=== PATIENT | male | born 1990 | race Caucasian/White ===

== ENCOUNTER 2019-10-19 12:28 | Emergency (ER) | payer SELFPAY ==
[2019-10-19 12:29] VITALS: BP 136/80; PULSE 77; RESP 16; TEMP 36.7; O2SAT 99; BMI 19.5
--- NOTE | 2019-10-19 12:44 | ED.DCSUM_ITS ---
- ER Visit Summary Date of Service: 10/19/19 Chief Complaint: [Dental pain] History of Present Illness: The patient is a 29 M [presents to the emergency department complaint abdominal pain that started 2 days ago. Patient states that he went to a [place] camp and initially the pain was mild but progressively worsened. He denies any fever. He denies any trauma. Patient states that he thinks a piece of bone came loose from 1 of his teeth. Patient states he has poor dentition and does not have a dentist. He has any medical problems.] Physical Examination: [HEENT-PERRLA, EOMI. Cranial nerves II through XII grossly intact. TMs clear. Mucous membranes moist. No adenopathy. -patient has tenderness palpation over the right upper molar tooth #2. Patient also has tenderness palpation over the right lower premolar that is broken and carried. No facial cellulitis or erythema noted. No discrete dental abscesses noted. Cardiovascular-regular rate and rhythm without murmur or ectopy Lungs-clear to auscultation, chest wall stable without crepitus or subcu emphysema Abdomen-normoactive bowel sounds, soft, nontender, no rebound or rigidity, no peritoneal signs. Extremities-intact ?4, normal range of motion, normal pulses, atraumatic] Test Results: [None indicated] Emergency Department Course and Treatment: [Patient was given 1 Whitt and clindamycin] Treatment Plan: [Patient will be given a prescription for clindamycin and [place]. Disposition: [Discharged home in stable condition] Impression: [Dental pain secondary to dental caries] This note was generated with [employer] dictation software. It may contain incorrect words, spelling, and punctuation that were not noted in review of the chart prior to signing ED Disposition - Plan for ED Patient: Referrals: Care Physician,No Primary [Primary Care Provider] -
--- NOTE | 2019-10-19 12:47 | DCINST.ED_ITS ---
ED Disposition - Plan for ED Patient: Instructions: Dental Pain Prescriptions: Clindamycin HCl [Cleocin] 300 mg PO Q6H #40 cap Prescription Printed Hydrocodone Bitart/Apap 5-325 [[place] 5MG-325MG] 1 tab PO Q4H PRN PRN 2 Days #14 tab PRN Reason: Pain Prescription Printed Referrals: Care Physician,No Primary [Primary Care Provider] - Additional Instructions: see a dentist
[2019-10-19] MEDS: HYDROcodone Bitartrate/Apap 5/325 Tablet PO (12:50)
[2019-10-19] MEDS: Clindamycin HCl 150 MG Capsule 300 MG PO (12:51)
[2019-10-19 13:02] VITALS: PULSE 87; RESP 14; O2SAT 98
== END 2019-10-19 13:03 | disposition home or self-care (01) ==
LOC: ED 12:49
PROVIDERS: Emergency Provider Emergency Medicine
DX: K02.9 Dental caries, unspecified (principal); K08.89 Other specified disorders of teeth and supporting structures; S02.5XXA Fracture of tooth (traumatic), initial encounter for closed fracture; X58.XXXA Exposure to other specified factors, initial encounter; Y93.9 Activity, unspecified; Y92.9 Unspecified place or not applicable; Z72.0 Tobacco use
CPT/HCPCS: 99283

== ENCOUNTER 2020-04-27 16:45 | Emergency (ER) | payer MEDICAID, SELFPAY ==
[2020-04-27 16:45] VITALS: BP 127/86; PULSE 67; RESP 18; TEMP 36.5; O2SAT 97; BMI 19.1
--- NOTE | 2020-04-27 17:03 | ED.VIS.GEN ---
History of Present Illness Chief Complaint: Rash Informant: Patient Onset: Weeks Current Severity: Mild Maximum Severity: Mild Narrative: Poison marii involving the buttocks and groin, indicates last week he was camping he was laying in poison marii inadvertently he has had persistent typical rash presents for evaluation no other complaints no other trauma bowel bladder habits unremarkable Past Medical History - Allergies and Home Meds Allergies/Adverse Reactions: Allergies amoxicillin Allergy (Verified 04/27/20 16:48) Anaphylaxis Penicillins [PCN] Allergy (Verified 04/27/20 16:48) Anaphylaxis Primary Care Physician: Care Physician,No Primary [Primary Care Provider] - Past Medical History: None Smoking Status: Current every day smoker Review of Systems General: Denies: Chills, Fever, Sweats Eyes: Denies: Visual changes - bilaterally, Diplopia ENT: Denies: Rhinorrhea, Sore throat Cardiovascular: Denies: Chest pain, Palpitations Respiratory: Denies: Dyspnea, Cough, Dyspnea on exertion Gastrointestinal: Denies: Abdominal pain, Nausea, Vomiting, Diarrhea, Melena, Hematochezia Genitourinary: Denies: Dysuria, Hematuria, Frequency Musculoskeletal: Denies: Back pain, Extremity Pain Skin: Reports: Rash. Denies: Wounds Neurological: Denies: Headache, Weakness, Numbness Physical Exam Vital Signs/Narrative: Vital Signs Temp Pulse Resp BP Pulse Ox 04/27/20 16:45 97.7 F L 67 18 127/86 H 97 General: Well nourished, Well developed, No Acute Distress Head: Normocephalic, Atraumatic Eyes: Perrl, EOMI ENT: Moist mucous membranes, No rhinorrhea Neck: Supple, Nontender Cardiovascular: Regular rate, Regular rhythm, No murmurs Respiratory: No distress, CTA bilaterally, Chest nontender Abdomen: Soft, Nontender, Nondistended, Normal bowel sounds Back: Nontender, Normal Inspection Extremities: Nontender, No edema Skin: - - Has small papules involving the buttocks the anterior groin consistent with poison marii no petechia purpura blistering no penile lesions testicles unremarkable exam otherwise unremarkable with very mild bilateral adenopathy skin is intact he assures me this is related to him laying in poison marii he recognizes immediately got up Neurological: Alert, Oriented x3, Cranial nerves II-XII grossly intact, Normal Strength, Normal Sensation Psychological: Normal affect, Normal Mood Diagnostic/Tx/Re-eval - Medical Decision Making He will be treated with Kenalog hydrocortisone ointment to the areas that are most bothersome to him [place] bath and follow-up with his outpatient providers to be placed off work Home stable Final impression Poison marii type rash to groin area ED Disposition - Plan for ED Patient: Instructions: ED Dermatitis Poison Amrii Prescriptions: Hydrocortisone 1% Crm [Hytone] 1 applic TOPICAL BID 14 Days #1 tube Prescription Printed Referrals: Care Physician,No Primary [Primary Care Provider] - Carol Vicente [NON-STAFF] -
[2020-04-27] MEDS: Triamcinolone Acetonide 40 MG/ML Vial IM (17:34)
[2020-04-27 17:42] VITALS: RESP 18
== END 2020-04-27 17:42 | disposition home or self-care (01) ==
PROVIDERS: Emergency Provider Emergency Medicine
DX: L23.7 Allergic contact dermatitis due to plants, except food (principal); F17.200 Nicotine dependence, unspecified, uncomplicated
CPT/HCPCS: 96372; 99282

== ENCOUNTER 2020-07-18 11:51 | Emergency (ER) | payer MEDICAID, SELFPAY ==
[2020-07-18 11:52] VITALS: BP 150/76; PULSE 60; RESP 16; TEMP 36.1; O2SAT 99
--- NOTE | 2020-07-18 12:01 | CT_ITS ---
STUDY: CT ABDOMEN AND PELVIS WITHOUT CONTRAST REASON FOR EXAM: Male, 30 years old. Abdomen pain, nausea/vomiting, Hx-KS RADIATION DOSAGE (If Supplied By Facility): CTDIvol = ( 6.04 ) mGy, DLP = ( 276.33 ) mGycm TECHNIQUE: Transaxial images were obtained from the dome of the diaphragm to the symphysis pubis without oral contrast, and without intravenous contrast. Sagittal and coronal images were reconstructed. Individualized dose optimization techniques were used for this CT. COMPARISON: None. FINDINGS: The visualized lung bases are unremarkable. The visualized portions of the heart are within normal limits. Normal liver. Normal gallbladder and extrahepatic biliary system. Normal spleen. Normal pancreas. Normal bilateral adrenal glands. Normal right kidney. Punctate calcification in the upper pole calyx of the left kidney. Normal visualized stomach. Normal small intestine. Normal colon. The appendix is visualized and appears normal. Normal abdominal aorta. Normal inferior vena cava. Normal retroperitoneum. Normal urinary bladder. Normal abdominal wall. Normal osseous structures. CT/Abdomen/Pelvis without Cont IMPRESSION: Punctate calcification in the upper pole calyx of the left kidney. Electronically Signed: Vishal Amador, at 13:02 EDT , Service support ,
[2020-07-18] MEDS: 0.9% Normal Saline 1,000 ML 125 ML IV (12:09)
[2020-07-18 12:10] LABS: Bacteria 0 SEEN /hpf (None Seen); Mucous, Urine 0 SEEN /hpf (<or=2+); Red Blood Cells-Urine 0 SEEN /hpf (0-5)
[2020-07-18] MEDS: Ketorolac 30 MG/ML Syringe IV (12:10)
[2020-07-18] MEDS: Ondansetron 4 MG/2 ML Vial IV (12:10)
[2020-07-18] MEDS: Morphine 4 MG/ML Syringe IV (12:10)
[2020-07-18 12:15] LABS: Absolute Lymphocyte Count 2.81 X10^3/uL (0.83-4.51); Absolute Neutrophil Count 12.9 X10^3/uL (2.0-7.7); Basophil# 0.04 X10^3/uL; Basophil% 0.2 % (0-1); Eosinophil# 0.06 X10^3/uL; Eosinophils% 0.4 % (0-5); Hematocrit 45.1 % (40-54); Hemoglobin 15.4 g/dL (13.0-16.5); Lymphocyte # 2.81 X10^3/ul (4.0); Lymphocyte % 16.5 % (19-41); Mean Corp Hgb Conc 34.1 g/dL (32-36); Mean Corpuscular Hgb 30.7 pg (27.0-32.0); Mean Corpuscular Volume 89.8 fL (80-94); Mean Platelet Vol. 11.2 fl (6.2-12.0); Monocyte# 1.08 X10^3/uL; Monocyte% 6.4 % (0-10); NRBC Flagged by Analyzer 0 % (0-5); Neutrophil # 12.89 X10^3/uL (2.7-7.7); Neutrophil % 75.9 % (47-70); Platelet Count 247 K/mm3 (150-450); RBC Distribution Width CV 11.9 % (11.6-14.6); RBC Distribution Width SD 38.7 fl (35.1-43.9); Red Blood Count 5.02 M/mm3 (4.6-6.2)
[2020-07-18 12:27] LABS: Color, Urine Yellow (Yellow); Glucose, Dipstick Normal (Normal); Ketone-Dipstick Negative (Negative); Leukocyte Esterase-Dipstick 25 /ul (Negative); Nitrite-Dipstick Negative (Negative); Occult Blood-Urine Negative /ul (Negative); Protein-Dipstick Negative (Negative); Specific Gravity, Urine 1.015 (1.002-1.030); Urine Bilirubin Dipstick Negative (Negative); Urine Clarity Sl. Cloudy (Clear); Urine Urobilinogen Normal (Normal)
[2020-07-18 12:28] LABS: Anion Gap 4 (5-15); BUN 11 mg/dL (7-18); Calcium,Total 9.6 mg/dL (8.5-10.1); Chloride 104 mmol/L (98-107); Creatinine, Serum 0.85 mg/dL (0.70-1.30); EST Glomerular Filtration Rate 114 mL/min (>60); Est Glom Filt Rate - Afr Amer 137 mL/min (>60); Estimated Creatinine Clearance 115.18 ml/min; Glucose 93 mg/dL (74-106); Sodium Level 139 mmol/L (136-145)
[2020-07-18 12:44] LABS: Squamous Epithelial Cells - UA 0-5 SEEN /hpf (0-5); White Blood Cells 0-5 SEEN /hpf (0-5)
--- NOTE | 2020-07-18 14:16 | ED.VISSUMM ---
- ER Visit Summary Date of Service: 07/18/20 Chief Complaint: [Left flank pain and nausea and vomiting] History of Present Illness: The patient is a 30 M [presents to the emergency department with discomfort since around 10 PM. Patient states that he became very nauseated and started vomiting followed by pain in his left side of abdomen and into his back. Patient denies any diarrhea. Patient denies any blood in his stool or black tarry stool. He has had history of kidney stones and felt like it might be another kidney stone. He has had no fever. No recent illness. Patient does not have a primary care physician currently. He denies any trauma to his back. Pain is worse with movement. Denies any pain rating down his legs.] Physical Examination: [HEENT-PERRLA, EOMI. Cranial nerves II through XII grossly intact. TMs clear. Mucous membranes moist. No adenopathy. Cardiovascular-regular rate and rhythm without murmur or ectopy Lungs-clear to auscultation, chest wall stable without crepitus or subcu emphysema Abdomen-normoactive bowel sounds, soft. Patient has tenderness palpation over left lower abdomen that seems to reproduce his pain. Patient has CVA tenderness on the left. Back exam-patient has tenderness to palpation over the left lower ribs and lumbar paraspinal musculature that seems to reproduce his pain. Negative straight leg raises. Deep tendon reflexes are plus 2 out of 4 bilaterally at the patella and Achilles. Normal L5 extension bilaterally. Extremities-intact ?4, normal range of motion, normal pulses, atraumatic] Test Results: [CBC with differential obtained showed a's elevated white blood cell count of 17,000. Chemistries unremarkable. Urinalysis was normal. CT flank showed a punctate calcification in the upper pole of the left kidney otherwise nothing acute.] Emergency Department Course and Treatment: [Patient was medicated with Zofran 4 mg IV as well as Toradol 30 mg IV. Patient given morphine 4 mg IV.] Treatment Plan: [At this point etiology of patient's pain unclear although I suspect it may be musculoskeletal. I am able to reproduce his pain with palpation and its positional. Will be given a prescription for Flexeril and [place] for pain. Patient advised to follow-up with primary care physician relationship manager for no doc within next 3 to 5 days. Patient advised to return if worsening pain, fever, vomiting, or condition should worsen anyway.] Disposition: [Discharged home in stable condition] Impression: [Flank pain-etiology uncertain] This note was generated with [employer] dictation software. It may contain incorrect words, spelling, and punctuation that were not noted in review of the chart prior to signing ED Disposition - Plan for ED Patient: Referrals: Care Physician,No Primary [Primary Care Provider] -
--- NOTE | 2020-07-18 14:20 | ED.DEP ---
ED Disposition - Plan for ED Patient: Instructions: ED Unknown Causes of Abdominal Pain Male, ED Flank Pain Uncertain Cause Prescriptions: cycloBENZAPRine HCl [Flexeril] 10 mg PO TID PRN #20 tab PRN Reason: Muscle Spasm Prescription Printed Hydrocodone Bitart/Apap 5-325 [[place] 5MG-325MG] 1 tab PO Q4H PRN PRN 2 Days #10 tab PRN Reason: Pain Prescription Printed Referrals: Care Physician,No Primary [Primary Care Provider] - Sarwat Adams III, MD [STAFF PHYSICIAN] - 3-5 Days
--- NOTE | 2020-07-18 14:23 | DCINST.ED_ITS ---
ED Disposition - Plan for ED Patient: Instructions: ED Flank Pain Uncertain Cause, ED Unknown Causes of Abdominal Pain Male Prescriptions: cycloBENZAPRine HCl [Flexeril] 10 mg PO TID PRN #20 tab PRN Reason: Muscle Spasm Prescription Printed Hydrocodone Bitart/Apap 5-325 [[place] 5MG-325MG] 1 tab PO Q4H PRN PRN 2 Days #10 tab PRN Reason: Pain Prescription Printed Ondansetron [Zofran Odt] 4 mg PO Q8H PRN PRN #10 tab PRN Reason: Nausea Prescription Printed Referrals: Sarwat Adams III, MD [STAFF PHYSICIAN] - 3-5 Days Care Physician,No Primary [Primary Care Provider] -
[2020-07-18 14:35] VITALS: BP 125/85; PULSE 71; RESP 18; O2SAT 98
== END 2020-07-18 14:35 | disposition home or self-care (01) ==
PROVIDERS: Emergency Provider Emergency Medicine
DX: R10.9 Unspecified abdominal pain (principal); R11.2 Nausea with vomiting, unspecified; Z87.442 Personal history of urinary calculi; Z72.0 Tobacco use
CPT/HCPCS: 74176; 80048; 81001; 85025; 96361; 96374; 96375; 99283; J7030; A4216; J2405

== ENCOUNTER 2021-01-03 21:35 | Emergency (ER) | payer MEDICAID, SELFPAY ==
[2021-01-03 21:36] VITALS: BP 141/100; PULSE 84; RESP 16; TEMP 36.4; O2SAT 100; BMI 21.0
--- NOTE | 2021-01-03 23:07 | ED.DCSUM_ITS ---
History of Present Illness Chief Complaint: Dental Informant: Patient Narrative: Patient is a 30-year-old male with history of multiple cavities presenting with worsening dental pain. He states he is on the right side of his mouth both upper and bottom molars but more pronounced on the bottom. He states is been worsening over the past 3 weeks. Patient had an old prescription for clindamycin with approximately 12 pills left that he has been spacing out over this timeframe. He is alternating Tylenol and ibuprofen with no relief of the symptoms. He is concerned because the pain is significantly worsening and is not getting better. He denies any swelling of his face. The pain is now shooting into his ear. He denies any hearing changes. He denies any fever or chills. He denies any difficulty swallowing or swelling of his face. He does have an appointment to see his dentist on the , in 4 days. Past Medical History - Allergies and Home Meds Allergies/Adverse Reactions: Allergies amoxicillin Allergy (Verified 01/03/21 21:37) Anaphylaxis Penicillins [PCN] Allergy (Verified 01/03/21 21:37) Anaphylaxis Primary Care Physician: Care Physician,No Primary [Primary Care Provider] - Past Medical History: None Surgical History: noncontributory Lives: Spouse/ Significant Other Smoking Status: Current every day smoker Review of Systems General: Denies: Chills, Fever, Sweats Eyes: Denies: Visual changes - bilaterally, Diplopia ENT: Reports: Right ear pain, - - Right-sided dental pain. Denies: Rhinorrhea, Sore throat Cardiovascular: Denies: Chest pain, Palpitations Respiratory: Denies: Dyspnea, Cough Gastrointestinal: Denies: Abdominal pain, Nausea, Vomiting Skin: Denies: Rash, Wounds Neurological: Reports: Headache. Denies: Weakness Physical Exam Vital Signs/Narrative: Vital Signs Temp Pulse Resp BP Pulse Ox 01/03/21 21:36 97.5 F L 84 16 141/100 H 100 Inital Vital Signs reviewed: Yes General: Well nourished, Well developed Head: Normocephalic, Atraumatic ENT: Moist mucous membranes, No rhinorrhea, TM's clear Mouth/Throat: Normal inspection lips/gums, Normal oral mucosa, Dental abscess - Posterior to right bottom third molar, Dentral fracture, Gingivitis, Tenderness on tooth percussion - Patient's remaining right upper molar and right lower molars, Widespread dental decay. Negative for: Dental trauma, Trismus Neck: Supple, No lymphadenopathy, Nontender Cardiovascular: Regular rate, Regular rhythm Respiratory: No distress Back: Normal Inspection Extremities: Nontender, No edema Skin: Normal color, No rash Neurological: Alert, Oriented x3, Cranial nerves II-XII grossly intact, Normal Strength, Normal Sensation Psychological: Normal affect Diagnostic/Tx/Re-eval - Medical Decision Making Regional and Local Dental Anesthesia: Marc[place], Local Supraperiosteal Dental Injection, Right Inferior Alveolar Nerve Block, - - Right posterior superior alveolar block Evaluated for worsening dental pain. He does not have any airway compromise. He has normal neurologic exam. He does have widespread dental decay with multiple cracked and missing teeth. Dental block is performed to his right molars. Patient does have improvement of symptoms with this. He has been taking a very subtherapeutic dose of clindamycin that he had leftover. Patient is placed on the appropriate dose of clindamycin and given a short course of [place] for pain control. He has a dental appointment in 4 days. Patient is counseled on smoking cessation as this is worsening his dentalgia. Patient is have a small area of abscess behind his right molar and the area is opened with an 18-gauge needle. Patient tolerated procedure well. Patient is counseled on signs and symptoms requiring return to the emergency room. Patient verbalizes agreement and understand this plan. Patient discharged home in stable and improved condition. ED Disposition - Plan for ED Patient: Disposition: Home or Assisted Living Diagnosis: Dentalgia, Dental abscess Instructions: Dental Abscess, ED Dental Pain Prescriptions: Clindamycin [Cleocin] 450 mg PO TID 10 Days #90 cap Prescription Printed Hydrocodone Bitart/Apap 5-325 [[place] 5MG-325MG] 1 tab PO Q6H PRN PRN 3 Days #10 tab PRN Reason: Pain Prescription Printed Additional Instructions: Please continue to alternate ibuprofen with the pain medicine prescribed. Follow-up with your dentist as scheduled on Wednesday.
[2021-01-03] MEDS: Clindamycin HCl 150 MG Capsule 450 MG PO (23:32)
[2021-01-03] MEDS: Bupiv/Epi 0.5% Mpf 30 ML Vial SC (23:33)
== END 2021-01-04 00:07 | disposition home or self-care (01) ==
PROVIDERS: Emergency Provider Emergency Medicine
DX: K04.7 Periapical abscess without sinus (principal); K02.9 Dental caries, unspecified; F17.200 Nicotine dependence, unspecified, uncomplicated
CPT/HCPCS: 64400; 64999; 99283

== ENCOUNTER 2021-04-06 22:11 | Emergency (ER) | payer MEDICAID, SELFPAY ==
[2021-04-06 22:12] VITALS: BP 135/98; PULSE 73; RESP 16; TEMP 37
--- NOTE | 2021-04-06 22:27 | EDS_ITS ---
HPI History of Present Illness Chief Complaint: Dental Detail of Chief Complaint: With left lower molar pain x4 days Informant: patient Onset/Context/Timing Current Severity: Severe Maximum Severity: Severe Narrative Narrative: Patient presents with dental pain x4 days. He denies any trauma. Patient states that he has had some poor dentition and [facility]. He denies any fevers. Patient states that he has a broken and carried left lower molar that is painful. [id number] remedies are not helpful. PFSH PFSH Home Medications clindamycin HCl 300 mg PO 4X/DAY #80 capsule 04/06/21 [Rx Last Taken Unknown] hydrocodone-acetaminophen 1 tab PO Q4H PRN PRN 2 Days #10 tablet 04/06/21 [Rx Last Taken Unknown] Allergy/AdvReac Type Severity Reaction Status Date / Time amoxicillin Allergy Anaphylaxis Verified 01/03/21 21:37 Penicillins [PCN] Allergy Anaphylaxis Verified 01/03/21 21:37 Social History Smoking Status: Current every day smoker ROS ROS ED Constitutional Constitutional ED: Reports systems reviewed and no addt'l complaints, except as documented; Denies body ache(s), change in weight or chills Eyes Eyes: Denies acute decrease in peripheral vision, change in vision, double vision or loss of vision ENT ENT ED: Reports none and other Details: Left lower molar dental pain ; Denies ear pain, lip swelling, loss taste/smell, neck pain, otalgia or sore throat Cardiovascular Cardiovascular: Reports none; Denies abdominal pain, chest pain with activity, leg edema, lightheadedness, palpitations, rapid heart rate or syncope Respiratory/Chest Respiratory/Chest: Reports none; Denies change in mental status, dry cough, dyspnea, hemoptysis, shortness of breath at rest or shortness of breath with exertion Gastrointestinal Gastrointestinal: Reports none; Denies abdominal pain, change in stool character, diarrhea, hematemesis, hematochezia, melena, rectal bleeding or vomiting Genitourinary Genitourinary ED: Reports none; Denies abdominal discomfort, anuria, dysuria, genital pain or polyuria Musculoskeletal Musculoskeletal: Reports none; Denies arthralgias, back pain, difficulty walking, extremity pain, muscle weakness or myalgias Integumentary Reports none; Denies abscess or rash Neurologic Neurologic: Reports none; Denies abnormal gait, confusion, focal weakness, frequent falls, headache(s), loss of vision, numbness, paresthesias, radicular pain, vertigo or weakness Psychiatric Psychiatric: Reports systems reviewed and no addt'l complaints, except as docum ented and none; Denies behavioral changes, confusion, difficulty concentrating, hallucinations, suicidal ideation, tactile hallucinations or visual hallucinations Endocrine Endocrinology: Denies none, cold intolerance, excessive sweating, fatigue or heat intolerance Hematologic/Lymphatic Hematologic/Lymphatic: Reports none; Denies anemia, easy bleeding or easy bruising Allergic/Immunologic Allergic/Immunologic ED: Denies as per HPI, none, lip swelling, mouth swelling, throat swelling, tongue swelling or hives EXAM Physical Exam Const Vital Signs: 04/06/21 22:12 Temperature 98.6 F Temperature Source Temporal Pulse Rate 73 Respiratory Rate 16 Blood Pressure 135/98 H Blood Pressure Mean 110 Positive well nourished and well developed General Appearance ED: well developed and NAD HEENT Reports TM's clear and moist mucous membranes HEENT Narrative: Dentition-patient has tenderness palpation over the left lower molar tooth #17. No gingival erythema or abscess noted. No facial cellulitis. normocephalic and atraumatic; Negative for trauma or tenderness Tympanic Membrane ED: Yes TM's clear Eyes PERRL and EOMs intact bilaterally General Eye ED: Negative for pale conjunctiva or scleral icterus Neck no lymphadenopathy, supple and no JVD General: Negative for tenderness Chest Wall inspection of chest normal and palpation of chest normal Chest: Negative for tenderness Resp normal respiratory effort and clear to auscultation bilaterally Effort and Inspection: Negative for respiratory distress or pain with movement Auscultation: Negative for rhonchi, wheezes or diminished lung sounds Cardio regular rate, regular rhythm, S1 normal heart sound, S2 normal heart sound and no murmurs Peripheral Pulses: pulses 2+ throughout GI normal to inspection, nondistended, normoactive bowel sounds, soft to palpation, non-tender, non-distended and no masses Back/Spine no CVA tenderness and no thoracic nor lumbar tenderness Extremity normal to inspection General Extremety ED: Negative for edema General Extremity: Negative for edema Neuro oriented x3, CN's II-XII intact bilaterally, no sensory deficits noted and gait normal Sensorium / Orientation: awake, alert, oriented to person, oriented to place and oriented to time Motor Exam: strength 5/5 throughout and strength abnormal Psych mental status grossly normal Skin no rashes or lesions noted and no wounds MDM MDM MDM Narrative Medical decision making narrative: Patient will be given a prescription for clindamycin and [place] for pain. He is referred back to his dentist for follow- up. Discharge Plan Triage Chief Complaint: Dental ED Provider: Ayse Ochoa Dx/Rx/DC Orders Clinical Impression: Pain due to dental caries Instructions: ED Dental Pain Prescriptions: New hydrocodone-acetaminophen [hydrocodone-acetaminophen] 1 TABLET tablet 1 tab PO Q4H PRN PRN (Reason: Pain) 2 Days Qty: 10 RF: 0 clindamycin HCl 150 MG capsule 300 mg PO 4X/DAY Qty: 80 RF: 0 Primary Care Provider: Care Physician,No Primary Referrals: Care Physician,No Primary [Primary Care Provider] - Activity Restrictions/Additional Instructions: See your dentist in the next 3 to 5 days. Disposition Disposition: Home, self care
[2021-04-06] MEDS: Clindamycin HCl 150 MG Capsule 300 MG PO (22:46)
== END 2021-04-06 22:47 | disposition home or self-care (01) ==
LOC: ED 22:43
PROVIDERS: Emergency Provider Emergency Medicine
DX: K02.9 Dental caries, unspecified (principal); F17.200 Nicotine dependence, unspecified, uncomplicated
CPT/HCPCS: 99283

== ENCOUNTER 2021-04-09 17:43 | Emergency (ER) | payer MEDICAID, SELFPAY ==
[2021-04-09 17:45] VITALS: BP 150/74; PULSE 72; RESP 18; TEMP 36; O2SAT 100; BMI 44.2
--- NOTE | 2021-04-09 18:08 | ED.VIS.DENTA ---
HPI History of Present Illness Chief Complaint: Dental Informant: patient Onset/Context/Timing Onset: Today Context: Gradual Onset Timing: Continuous Quality: Throbbing Location: Left lower molars Current Severity: Severe Maximum Severity: Severe Worsened by: Nothing Relieved by: - (Rinsing with cold water) Associated Symptoms Assocated Symptom - Dental: hot sensitivity; Negative for fever, jaw swelling, face swelling or cold sensitivity Narrative Narrative: Patient presents with left lower dental pain that became worse today. Patient states he was seen here earlier this week and was given prescriptions for clindamycin and Saint Gabriel. Patient states he is out of his Saint Gabriel. Patient states that he felt like while he was sleeping last night he was grinding his teeth. Patient thinks he may have broken a piece off of his tooth. Patient states it feels as though there are exposed nerves. Patient states he tried to make a dentist appointment at the [facility] but he states that the dentist there does not pull wisdom teeth. PFSH PFSH Home Medications clindamycin HCl 300 mg PO 4X/DAY #80 capsule 04/06/21 [Rx Last Taken Unknown] hydrocodone-acetaminophen 1 tab PO Q4H PRN PRN 2 Days #10 tablet 04/06/21 [Rx Last Taken Unknown] hydrocodone-acetaminophen 1 tab PO Q6H PRN PRN 3 Days #10 tablet 04/09/21 [Rx Last Taken Unknown] Allergy/AdvReac Type Severity Reaction Status Date / Time amoxicillin Allergy Anaphylaxis Verified 01/03/21 21:37 Penicillins [PCN] Allergy Anaphylaxis Verified 01/03/21 21:37 Social History Smoking Status: Current every day smoker tobacco type: cigarettes ROS ROS ED Constitutional Constitutional ED: Denies chills or fever(s) Eyes Eyes: Denies blurry vision or change in vision ENT ENT ED: Denies rhinorrhea or sore throat Cardiovascular Cardiovascular: Denies chest pain or palpitations Respiratory/Chest Respiratory/Chest: Denies cough or dyspnea Gastrointestinal Gastrointestinal: Denies nausea or vomiting Genitourinary Genitourinary ED: Denies dysuria or hematuria Musculoskeletal Musculoskeletal: Denies back pain or neck pain Integumentary Denies abscess or rash Neurologic Neurologic: Denies headache(s) or weakness Allergic/Immunologic Allergic/Immunologic ED: Denies mouth swelling or urticaria EXAM Physical Exam Const Vital Signs: 05/26/21 17:45 Temperature 96.8 F L Temperature Source Temporal Pulse Rate 72 Respiratory Rate 18 Blood Pressure 150/74 H Blood Pressure Mean 99 Pulse Ox 100 Oxygen Delivery Method Room Air Positive well nourished and well developed General Appearance ED: well developed HEENT Teeth and Gingiva: abnormal tooth and associated gingiva Positive for tenderness (#17), caries and poor dentition Throat: posterior oropharynx normal Neck supple and no JVD General: Negative for anterior neck swelling or submandibular swelling Neuro oriented x3, CN's II-XII intact bilaterally, moves all extremities, no focal motor deficits and no sensory deficits noted Sensorium / Orientation: alert Psych Mood & Affect: anxious MDM MDM MDM Narrative Medical decision making narrative: Patient was given a dose of Saint Gabriel here. Patient was given a prescription for a short course of Saint Gabriel. Patient was instructed to continue his clindamycin as previously prescribed. Patient was advised that his wisdom teeth may not need to be removed. Patient was advised that it may just need a filling. Patient was instructed to follow-up with his dentist. Patient understood and was agreeable with the plan. All questions were answered. Discharge Plan Triage Chief Complaint: Dental ED Provider: Orlando Lopez Dx/Rx/DC Orders Clinical Impression: Pain due to dental caries Instructions: ED Dental Pain, ED Dental Cavity Prescriptions: New hydrocodone-acetaminophen [hydrocodone-acetaminophen] 1 TABLET tablet 1 tab PO Q6H PRN PRN (Reason: Pain) 3 Days Qty: 10 RF: 0 No Action hydrocodone-acetaminophen [hydrocodone-acetaminophen] 1 TABLET tablet 1 tab PO Q4H PRN PRN (Reason: Pain) 2 Days Qty: 10 RF: 0 clindamycin HCl 150 MG capsule 300 mg PO 4X/DAY Qty: 80 RF: 0 Primary Care Provider: Care Physician,No Primary Referrals: Care Physician,No Primary [Primary Care Provider] - Dentist,Your [STAFF PHYSICIAN] - 1-2 Days if not improving Activity Restrictions/Additional Instructions: You have a large cavity on your left lower second and third molars. These may not need to be extracted or pulled. A filling may relieve your pain. Make sure that you follow-up with your dentist to have them examine this and provide you with further treatment options. Call tomorrow morning to schedule an appointment. Disposition Disposition: Home, self care
[2021-04-09] MEDS: HYDROcodone Bitartrate/Apap 5/325 Tablet PO (18:26)
== END 2021-04-09 18:28 | disposition home or self-care (01) ==
LOC: ED 18:15
PROVIDERS: Emergency Provider Emergency Medicine
DX: K02.9 Dental caries, unspecified (principal); F17.210 Nicotine dependence, cigarettes, uncomplicated
CPT/HCPCS: 99283

== ENCOUNTER → 2021-05-12 11:57 | Outpatient (CLI) | payer MEDICAID, SELFPAY ==
--- NOTE | 2021-05-12 12:01 | RAD_ITS ---
INDICATION: FALL EXAMINATION/TECHNIQUE: X-RAY - XR Spine Thoracic 3 Views COMPARISON: None FINDINGS: VERTEBRAE: Preserved vertebral body height. No fracture. No spondylolisthesis. Preservation of the normal thoracic kyphosis. No significant facet arthropathy. DISCS: Disc spaces are maintained. INCLUDED CHEST/ABDOMEN: No acute abnormalities. RAD/Thoracic Spine 3 Views IMPRESSION: No evidence of thoracic spinal fracture or spondylolisthesis. Electronically Signed: Deandre Castaneda MD at 17:06 EDT Tel , Service support ,
--- NOTE | 2021-05-12 12:01 | RAD_ITS ---
INDICATION: FALL EXAMINATION/TECHNIQUE: X-RAY - XR Spine Cervical 2 or 3 Views COMPARISON: None. 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 Preserved vertebral body height. No fracture. No spondylolisthesis. Preservation of the normal cervical lordosis. No significant facet arthropathy. DISCS: Disc spaces are maintained. NECK SOFT TISSUES: No prevertebral soft tissue widening. LUNG APICES: Clear. RAD/Cerv Spine 2 or 3 Views IMPRESSION: No acute abnormalities. 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 Electronically Signed: Deandre Castaneda MD at 17:06 EDT Tel , Service support ,
== END ==
PROVIDERS: Referring Provider Chiropractor Orthopedic; Visit Provider Chiropractor Orthopedic
DX: M54.2 Cervicalgia (principal); M54.6 Pain in thoracic spine
CPT/HCPCS: 72040; 72072

== ENCOUNTER 2022-03-18 10:22 | Emergency (ER) | payer MEDICAID, SELFPAY ==
[2022-03-18 10:23] VITALS: BP 139/89; PULSE 62; RESP 14; TEMP 36.2; O2SAT 98
--- NOTE | 2022-03-18 10:55 | CT_ITS ---
STUDY: CT ABDOMEN AND PELVIS WITH CONTRAST REASON FOR EXAM: Male, 32 years old. Diffuse abdominal pain. RADIATION DOSAGE (If Supplied By Facility): CTDIvol = ( 9.44 ) mGy, DLP = ( 286.61 ) mGycm TECHNIQUE: Transaxial images were obtained from the dome of the diaphragm to the symphysis pubis without oral contrast. IV 100mL Isovue-300 was administered. Sagittal and coronal images were reconstructed. Individualized dose optimization techniques were used for this CT. COMPARISON: Comparison is made with prior study dated 07/18/2020. FINDINGS: The visualized lung bases are unremarkable. The visualized portions of the heart are within normal limits. Normal liver. Normal gallbladder and extrahepatic biliary system. Normal spleen. Normal pancreas. Normal bilateral adrenal glands. Normal right kidney. Normal left kidney. Normal visualized stomach. Normal small intestine. Moderate amount of fecal material is seen in the colon. The appendix is visualized and appears normal. Normal abdominal aorta. Normal inferior vena cava. Normal retroperitoneum. Normal urinary bladder. Normal abdominal wall. Normal osseous structures. CT/Abdomen/Pelvis W IV Cont ONLY IMPRESSION: Normal enhanced CT of the abdomen and pelvis. Electronically Signed: Vishal Amador MD at 11:28 EDT ,
[2022-03-18] MEDS: Ondansetron 4 MG/2 ML Vial IV (11:05)
[2022-03-18] MEDS: 0.9% Normal Saline 1,000 ML 1000 ML IV (11:05)
[2022-03-18] MEDS: Morphine 4 MG/ML Syringe IV (11:05)
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
[2022-03-18 11:17] LABS: Absolute Lymphocyte Count 1.56 X10^3/uL (0.83-4.51); Absolute Neutrophil Count 4.4 X10^3/uL (2.0-7.7); Basophil# 0.02 X10^3/uL; Basophil% 0.3 % (0-1); Eosinophils% 1.5 % (0-5); Hematocrit 43.9 % (40-54); Hemoglobin 15.1 g/dL (13.0-16.5); Lymphocyte # 1.56 X10^3/ul (0.83-4.51); Lymphocyte % 23.9 % (19-41); Mean Corp Hgb Conc 34.4 g/dL (32-36); Mean Corpuscular Hgb 30.9 pg (27.0-32.0); Mean Platelet Vol. 11.4 fl (6.2-12.0); Monocyte# 0.42 X10^3/uL; Monocyte% 6.4 % (0-10); NRBC Flagged by Analyzer 0 % (0-5); Neutrophil # 4.38 X10^3/uL (2.7-7.7); Neutrophil % 67.3 % (47-70); Platelet Count 178 K/mm3 (150-450); RBC Distribution Width CV 12.2 % (11.6-14.6); RBC Distribution Width SD 40.7 fl (35.1-43.9); Red Blood Count 4.88 M/mm3 (4.6-6.2); White Blood Count 6.5 K/mm3 (4.4-11.0)
[2022-03-18 11:33] LABS: AST(SGOT) 16 U/L (15-37); Alanine Aminotransfer ALT/SGPT 22 U/L (16-61); Alkaline Phosphatase 63 U/L (45-117); Anion Gap 4 (5-15); BUN 18 mg/dL (7-18); BUN/Creat Ratio 18.3 RATIO (10-20); Bilirubin, Direct 0.14 mg/dL (0.00-0.30); Calcium,Total 8.8 mg/dL (8.5-10.1); Chloride 106 mmol/L (98-107); Creatinine, Serum 0.98 mg/dL (0.70-1.30); EST Glomerular Filtration Rate 95 mL/min (>60); Est Glom Filt Rate - Afr Amer 114 mL/min (>60); Glucose 96 mg/dL (74-106); Lipase 46 U/L (73-393); Sodium Level 138 mmol/L (136-145)
[2022-03-18 11:53] LABS: Mucous, Urine 0 SEEN /hpf (<or=2+); Red Blood Cells-Urine 0 SEEN /hpf (0-5); Squamous Epithelial Cells - UA 0 SEEN /hpf (0-5); White Blood Cells 0 SEEN /hpf (0-5)
[2022-03-18 11:57] LABS: Color, Urine Yellow (Yellow); Glucose, Dipstick Normal (Normal); Ketone-Dipstick Negative (Negative); Leukocyte Esterase-Dipstick Negative /ul (Negative); Nitrite-Dipstick Negative (Negative); Occult Blood-Urine Negative /ul (Negative); Protein-Dipstick Negative (Negative); Urine Bilirubin Dipstick Negative (Negative); Urine Clarity Clear (Clear); Urine Urobilinogen Normal (Normal)
[2022-03-18 12:15] LABS: Bacteria RARE /hpf (None Seen)
[2022-03-18 12:16] LABS: Amphetamine Urine VISTA NEGATIVE (<1000 ng/mL); Barbiturate Urine VISTA NEGATIVE (< 200 ng/mL); Benzodiazepine Urine VISTA NEGATIVE (< 200 ng/mL); Cocaine Urine VISTA NEGATIVE (< 300 ng/mL); Ecstacy Urine VISTA NEGATIVE (< 500 ng/mL); Methadone Urine VISTA NEGATIVE (< 300 ng/mL); PCP Urine VISTA NEGATIVE (< 25 ng/mL); THC Urine VISTA POSITIVE (< 50 ng/mL); Vista UDS pH Range 6
[2022-03-18] MEDS: Haloperidol Lactate 5 MG/ML Vial 2 MG IV (13:12)
== END 2022-03-18 13:51 | disposition home or self-care (01) ==
PROVIDERS: Emergency Provider Emergency Medicine; Visit Provider Emergency Medicine
DX: R11.2 Nausea with vomiting, unspecified (principal); F12.90 Cannabis use, unspecified, uncomplicated; F17.210 Nicotine dependence, cigarettes, uncomplicated
CPT/HCPCS: 74177; 80048; 80076; 80307; 81001; 83690; 85025; 96361; 96374; 96375; 99283; J7030; Q9967; A4216; J2405

== ENCOUNTER → 2022-06-02 | Outpatient (CLI) | payer OTHER, MEDICAID, SELFPAY ==
[2022-06-02 10:34] LABS: Erythrocyte Sedimentation Rate 5 mm/hr (0-20)
[2022-06-02 11:10] LABS: CRP < 2.90 mg/L (0.0-3.0); LDH 164 U/L (87-241)
[2022-06-03 12:08] LABS: Anti-Centromere B Ab <0.2 AI (0.0-0.9); Anti-Chromatin <0.2 AI (0.0-0.9); Anti-Jo <0.2 AI (0.0-0.9); Anti-Scleroderma-70 AB <0.2 AI (0.0-0.9); RNP Ab <0.2 AI (0.0-0.9); SJOGREN'S Anti-SS-A test < 0.2 AI (0.0-0.9); SJOGREN'S Anti-SS-B test < 0.2 AI (0.0-0.9); Smith Ab <0.2 AI (0.0-0.9)
[2022-06-03 16:09] LABS: Endomysial Antibody IgA Negative (Negative)
[2022-06-04 12:36] LABS: Anti-dsDNA Ab <1 IU/mL (0-9)
[2022-06-04 16:05] LABS: Immunoglobulin A 197 mg/dL (90-386); t-Transglutaminase IgA <2 U/mL (0-3)
[2022-06-05 11:08] LABS: Albumin 4.2 g/dL (2.9-4.4); Alpha-1-Globulins 0.2 g/dL (0.0-0.4); Alpha-2-Globulins 0.6 g/dL (0.4-1.0); Cytoplasmic Ab (C-ANCA) <1:20 titer (Neg:<1:20); Gamma Globulin 0.7 g/dL (0.4-1.8); Immunoglobulin A 192 mg/dL (90-386); Immunoglobulin G 720 mg/dL (603-1613); Immunoglobulin M 55 mg/dL (20-172); PROEL- TOTAL PROTEIN 6.6 g/dL (6.0-8.5)
[2022-06-05 22:12] LABS: H. Pylori Antibody (IgG) 0.14 (0.00-0.79); Immunoglobulin E 29 IU/mL (6-495); Perinuclear Ab (P-ANCA) <1:20 titer (Neg:<1:20)
== END | disposition home or self-care (01) ==
PROVIDERS: Visit Provider Internal Medicine Gastroenterology
DX: R63.4 Abnormal weight loss (principal)
CPT/HCPCS: 36415; 82784; 82785; 83516; 83615; 84165; 85652; 86140; 86225; 86235; 86255; 86256; 86334; 86677

== ENCOUNTER → 2022-06-04 | Outpatient (CLI) | payer OTHER, MEDICAID, SELFPAY ==
[2022-06-11 12:50] LABS: Giardia Lamblia, Stool EIA Negative (Negative); Pancreatic Elastase, Fecal 221 (>200)
[2022-06-12 10:29] LABS: Fats, Neutral Normal (.); Fats, Total Normal (.)
[2022-06-12 10:30] LABS: Calprotectin, Stool <16 ug/g (0-120)
== END | disposition home or self-care (01) ==
LOC: LABSPEC 18:04
PROVIDERS: Visit Provider Internal Medicine Gastroenterology
DX: R63.4 Abnormal weight loss (principal); K58.9 Irritable bowel syndrome, unspecified
CPT/HCPCS: 82653; 82705; 83630; 83993; 87329; 87493

== ENCOUNTER 2022-09-03 11:45 | Emergency (ER) | payer OTHER, MEDICAID, SELFPAY ==
[2022-09-03 11:46] VITALS: BP 125/81; PULSE 54; RESP 14; TEMP 36.1; O2SAT 100; BMI 18.3
[2022-09-03 12:01] VITALS: BP 111/73; BP 113/87; BP 126/76; PULSE 58; PULSE 61; PULSE 62
--- NOTE | 2022-09-03 12:01 | EKG12_ITS ---
Test Reason : DIZZY Blood Pressure : / mmHG Vent. Rate : 042 BPM Atrial Rate : 042 BPM P-R Int : 160 ms QRS Dur : 090 ms QT Int : 434 ms P-R-T Axes : 049 048 057 degrees QTc Int : 362 ms Marked sinus bradycardia Abnormal ECG Confirmed by GÓMEZ SYKES, ALIZA ([id number]), editorial cartoonist ROQUE FLORES ([id number]) on 09/07/2022 9:42:10 AM Referred By: TL Confirmed By:ALIZA MAGAÑA MD
--- NOTE | 2022-09-03 12:03 | EDS_ITS ---
HPI History of Present Illness Chief Complaint: Dizziness Informant: patient and family Narrative Narrative: Patient here with significant other for evaluation near syncope since yesterday. States lightheaded symptoms. Reported blood pressure systolic 90s heart rate low 50s high 40s. No recent vomiting diarrhea. 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 He is placed on lactulose due to constipation issues. Denies vomiting diarrhea is tolerating p.o. intake. Denies abdominal pain. Concerned with these new symptoms and his vitals at home. Prior similar symptoms: No PFSH PFSH Medical History Arthritis Asthma Kidney stones Weight loss Home Medications nabumetone 500 mg tablet 500 mg PO PRN PRN Pain 06/02/22 [History Last Taken Unknown] hyoscyamine sulfate 0.125 mg tablet 0.125 mg PO TID PRN abdominal cramping #30 tabs 06/23/22 [Rx Last Taken Unknown] ondansetron 4 mg disintegrating tablet 4 mg PO Q6H PRN nausea and vomiting #120 tabs 06/23/22 [Rx Last Taken Unknown] pantoprazole 40 mg tablet,delayed release See Rx Instructions .Route .COMPLEX #60 tabs 08/11/22 [Rx Last Taken Unknown] lactulose 20 gram/30 mL oral solution 20 g (30 mL) PO QHS #1,200 mL 08/25/22 [Rx Last Taken Unknown] tefuip-psdvefrs-jjoetms 3,000-10,000-14,000 unit capsule,delayed rel (Zenpep) 3 cap PO DAILY #320 caps 08/25/22 [Rx Last Taken Unknown] metoclopramide HCl 5 mg tablet 5 mg PO BID 30 days #60 tabs 08/25/22 [Rx Last Taken Unknown] scopolamine base 1 mg over 3 days transdermal patch 1 patch transdermal Q3D PRN nausea and vomiting 30 days #24 ea 08/28/22 [Rx Last Taken Unknown] Allergy/AdvReac Type Severity Reaction Status Date / Time amoxicillin Allergy Anaphylaxis Verified 09/03/22 11:48 Penicillins [PCN] Allergy Anaphylaxis Verified 09/03/22 11:48 Family History Mother Acute Crohn's disease Brother Family history of GERD Other Arthritis Diabetes Social History Smoking Status: Current every day smoker tobacco type: cigarettes alcohol intake: current alcohol intake frequency: a few times a month Alcohol type: beer substance use type: marijuana what type of physical activity do you participate in: none ROS ROS ED Constitutional Constitutional ED: Denies chills, fever(s) or sweats Eyes Eyes: Denies change in vision ENT ENT ED: Denies dysphagia or sore throat Cardiovascular Cardiovascular: Denies chest pain, leg edema, palpitations or racing heartbeat Respiratory/Chest Respiratory/Chest: Denies cough, dyspnea or dyspnea on exertion Gastrointestinal Gastrointestinal: Denies abdominal pain, diarrhea, nausea or vomiting Genitourinary Genitourinary ED: Denies dysuria, hematuria or urinary frequency Musculoskeletal Musculoskeletal: Denies back pain, extremity pain or neck pain Integumentary Denies rash or wounds Neurologic Neurologic: Denies headache(s), paresthesias or weakness EXAM Physical Exam Const Vital Signs: 09/03/22 11:46 09/03/22 12:01 09/03/22 12:04 Temperature 97 F L Temperature Source Temporal Pulse Rate 54 L Pulse Rate [Lying] 62 Pulse Rate [Sitting (for 1 minute prior to obtaining)] 58 L Pulse Rate [Standing (for 1 minute prior to obtaining)] 61 Respiratory Rate 14 Respiratory Effort Normal Respiratory Pattern Normal Blood Pressure 125/81 H Blood Pressure [Lying] 111/73 Blood Pressure [Sitting (for 1 minute prior to obtaining)] 126/76 H Blood Pressure [Standing (for 1 minute prior to obtaining)] 113/87 H Blood Pressure Mean 95 Blood Pressure Mean [Lying] 85 Blood Pressure Mean [Sitting (for 1 minute prior to obtaining)] 92 Blood Pressure Mean [Standing (for 1 minute prior to obtaining)] 95 Pulse Ox 100 Oxygen Delivery Method Room Air 09/03/22 14:06 Temperature Temperature Source Pulse Rate 36 L Pulse Rate [Lying] Pulse Rate [Sitting (for 1 minute prior to obtaining)] Pulse Rate [Standing (for 1 minute prior to obtaining)] Respiratory Rate 13 Respiratory Effort Respiratory Pattern Blood Pressure 125/76 H Blood Pressure [Lying] Blood Pressure [Sitting (for 1 minute prior to obtaining)] Blood Pressure [Standing (for 1 minute prior to obtaining)] Blood Pressure Mean 92 Blood Pressure Mean [Lying] Blood Pressure Mean [Sitting (for 1 minute prior to obtaining)] Blood Pressure Mean [Standing (for 1 minute prior to obtaining)] Pulse Ox 99 Oxygen Delivery Method Room Air Positive well nourished and well developed General Appearance ED: well developed and NAD HEENT Reports moist mucous membranes normocephalic and atraumatic Eyes PERRL, EOMs intact bilaterally and conjunctivae normal General Eye ED: Yes normal appearance of both eyes Neck no lymphadenopathy and supple General: Negative for tenderness Chest Wall Chest: Negative for tenderness Resp normal respiratory effort and normal air movement Effort and Inspection: symmetric chest movement; Negative for respiratory distress Cardio regular rhythm and no murmurs Rate: bradycardia Peripheral Pulses: pulses 2+ throughout GI normal to inspection, nondistended, normoactive bowel sounds and non-tender Palpation: Negative for guarding or rebound tenderness present Back/Spine no CVA tenderness and no thoracic nor lumbar tenderness Extremity normal to inspection General Extremety ED: Negative for edema or tenderness General Extremity: Negative for edema Neuro oriented x3 and no sensory deficits noted Sensorium / Orientation: awake and alert Skin no rashes or lesions noted and no wounds MDM MDM MDM Narrative Medical decision making narrative: Patient blood pressure 120s heart rate initially in the 50s orthostatics was negative. EKG sinus bradycardia rate in the 50s. Potential hyperkalemia changes with T wave enlarged which was old. I checked labs potassium 4.0. Hemoglobin 14. Reevaluation on the monitor his heart rate would drop down to 32. Blood pressure remaining stable. He states he does not feel well. Evaluation of his medicines that he was started on none would cause any bradycardia symptoms. Zenpep with noted possible dizziness. 1330 I spoke with on-call truck driver heavy Dr. Judd, recommended transfer to EP capable facility due to no current coverage. I did add a TSH and magnesium level. Will discuss with patient mother for potential facilities. 1430: [facility], Dr. Schofield, updated on patient's history and findings. He is excepted to their facility. Awaiting bed at this time. TSH and magnesium returned normal. Lab Data Attestation: I reviewed the patient's lab results. Labs: Laboratory Results - last 24 hr 09/03/22 09/03/22 09/03/22 12:05 12:05 12:05 WBC 7.1 RBC 4.75 Hgb 14.3 Hct 42.5 MCV 89.5 MCH 30.1 MCHC 33.6 RDW Std Deviation 37.2 RDW Coeff of Gregorio 11.5 L Plt Count 193 MPV 11.3 Immature Gran % (Auto) 0.600 Neut % (Auto) 64.4 Lymph % (Auto) 27.0 [place] % (Auto) 6.6 Eos % (Auto) 1.0 Baso % (Auto) 0.4 Absolute Neuts (auto) 4.6 Absolute Lymphs (auto) 1.92 Nucleated RBC % 0 Sodium 141 Potassium 4.0 Chloride 108 H Carbon Dioxide 24.0 Anion Gap 9 BUN 15 Creatinine 0.91 Estim Creat Clear Calc 99.61 Est GFR (MDRD) Af Amer 124 Est GFR (MDRD) Non-Af 103 BUN/Creatinine Ratio 16.5 Glucose 86 Calcium 9.3 Magnesium 2.3 TSH 0.49 EKG Initial EKG: Attestation: I personally reviewed and interpreted this EKG as follows: Comments: Sinus rate of [address] changes. There was enlarged T waves in inferior- lateral leads, QTC 362. Similar to old EKG. Critical Care Time Critical Care Time: Yes Critical care time (excluding procedures): 30-74 minutes, Discussing w/Patient &/or Family/Interactive Account Manager, Discussing w/Consultants, Arranging Admission or Transfer, Performing Direct Patient Care at Bedside and - (35 minutes) Discharge Plan Triage Chief Complaint: Dizziness ED Provider: Humberto Vásquez Dx/Rx/DC Orders Clinical Impression: Symptomatic bradycardia, Bradycardia, sinus, Near syncope, Pancreatic insufficiency Prescriptions: No Action nabumetone 500 mg tablet 500 mg PO PRN PRN (Reason: Pain) metoclopramide HCl 5 mg tablet 5 mg PO BID 30 Days Qty: 60 0RF Rx Instructions: administer 30 minutes before meals lactulose 20 gram/30 mL solution 20 g PO QHS Qty: 1200 0RF Zenpep 3,000-10,000 -14,000-unit capsule,delayed release(DR/EC) 3 cap PO DAILY Qty: 320 3RF Rx Instructions: take three with meals and one to two with snacks. ondansetron 4 mg tablet,disintegrating 4 mg PO Q6H PRN (Reason: nausea and vomiting) Qty: 120 0RF hyoscyamine sulfate 0.125 mg tablet 0.125 mg PO TID PRN (Reason: abdominal cramping) Qty: 30 1RF pantoprazole 40 mg tablet,delayed release (DR/EC) See Rx Instructions .ROUTE .COMPLEX Qty: 60 0RF Dose Instruction: take 1 tablet by mouth twice a day Rx Instructions: take 1 tablet by mouth twice a day scopolamine base 1 mg over 3 days patch 3 day 1 patch transdermal Q3D PRN (Reason: nausea and vomiting) 30 Days Qty: 24 2RF Primary Care Provider: Marin Lambert Referrals: Care Physician,No Primary [Non-Staff] - Disposition Disposition: DC/Tx to Another Type of HCF
--- NOTE | 2022-09-03 12:10 | CM.ED ---
Addendum entered by Geneva Beck 09/03/22 17:03: Patient being transferred to [facility]. EDDA met with patient and his significant other regarding directions to [facility]. Patient's significant other said that she will follow the EMS to [facility]. No further issues or needs voiced. Geneva JANE Original Note: EDDA Note Referral Source: Case Find Referral Reason: No Primary Care Physician (PCP) EDDA reviewed chart and noted that patient has no PCP. EDDA provided patient with list of [facility] and [facility] Physician List for reference. No other issues or concerns voiced at this time. EDDA remains available for any additional needs. Plan: Provided patient with PCP information Geneva JANE
[2022-09-03 12:16] LABS: Absolute Lymphocyte Count 1.92 X10^3/uL (0.83-4.51); Absolute Neutrophil Count 4.6 X10^3/uL (2.0-7.7); Basophil# 0.03 X10^3/uL; Basophil% 0.4 % (0-1); Eosinophil# 0.07 X10^3/uL; Hematocrit 42.5 % (40-54); Hemoglobin 14.3 g/dL (13.0-16.5); Lymphocyte # 1.92 X10^3/ul (0.83-4.51); Mean Corp Hgb Conc 33.6 g/dL (32-36); Mean Corpuscular Hgb 30.1 pg (27.0-32.0); Mean Corpuscular Volume 89.5 fL (80-94); Mean Platelet Vol. 11.3 fl (6.2-12.0); Monocyte# 0.47 X10^3/uL; Monocyte% 6.6 % (0-10); NRBC Flagged by Analyzer 0 % (0-5); Neutrophil # 4.58 X10^3/uL (2.7-7.7); Neutrophil % 64.4 % (47-70); Platelet Count 193 K/mm3 (150-450); RBC Distribution Width CV 11.5 % (11.6-14.6); RBC Distribution Width SD 37.2 fl (35.1-43.9); Red Blood Count 4.75 M/mm3 (4.6-6.2); White Blood Count 7.1 K/mm3 (4.4-11.0)
[2022-09-03] MEDS: 0.9% Normal Saline 1,000 ML 1000 ML IV (12:23)
[2022-09-03 12:36] LABS: Anion Gap 9 (5-15); BUN 15 mg/dL (7-18); BUN/Creat Ratio 16.5 RATIO (10-20); Calcium,Total 9.3 mg/dL (8.5-10.1); Chloride 108 mmol/L (98-107); Creatinine, Serum 0.91 mg/dL (0.70-1.30); EST Glomerular Filtration Rate 103 mL/min (>60); Est Glom Filt Rate - Afr Amer 124 mL/min (>60); Estimated Creatinine Clearance 99.61 ml/min; Glucose 86 mg/dL (74-106); Sodium Level 141 mmol/L (136-145)
--- NOTE | 2022-09-03 13:15 | ED.RN ---
pt heart rate dropping to mid 30's frequently. dr baptiste
[2022-09-03 14:01] LABS: Magnesium 2.3 mg/dL (1.6-2.6); Thyroid Stim Hormone (TSH) 0.49 uIU/mL (0.358-3.74)
[2022-09-03 14:06] VITALS: BP 125/76; PULSE 36; RESP 13; O2SAT 99
--- NOTE | 2022-09-03 14:42 | NURSING ---
[facility] ETA OF [id number].
[2022-09-03 14:47] VITALS: BP 125/73; PULSE 40; RESP 12; TEMP 36.6; O2SAT 98
[2022-09-03 16:37] VITALS: BP 117/77; PULSE 47; RESP 15; O2SAT 96
--- NOTE | 2022-09-03 16:38 | NURSING ---
[facility] CALL[facility]. NEW ETA OF [id number].
[2022-09-03 18:11] VITALS: BP 113/77; PULSE 42; RESP 16; O2SAT 98
== END 2022-09-03 18:15 | disposition other institution (70) ==
PROVIDERS: Emergency Provider Emergency Medicine; PCP Internal Medicine Cardiovascular Disease; Visit Provider Emergency Medicine
DX: R00.1 Bradycardia, unspecified (principal); R55 Syncope and collapse; K86.89 Other specified diseases of pancreas; F17.210 Nicotine dependence, cigarettes, uncomplicated; F12.90 Cannabis use, unspecified, uncomplicated
CPT/HCPCS: 80048; 83735; 84443; 85025; 93005; 96360; 96361; 99285; J7030

== ENCOUNTER 2023-03-27 00:40 | Emergency (ER) | payer OTHER, MEDICAID, SELFPAY ==
[2023-03-27 00:41] VITALS: BP 136/91; PULSE 98; RESP 18; TEMP 37.2; O2SAT 96; BMI 19.7
[2023-03-27 01:39] LABS: Absolute Lymphocyte Count 0.51 X10^3/uL (0.83-4.51); Absolute Neutrophil Count 4.3 X10^3/uL (2.0-7.7); Basophil# 0.03 X10^3/uL; Basophil% 0.5 % (0-1); Hemoglobin 14.2 g/dL (13.0-16.5); Lymphocyte # 0.51 X10^3/ul (0.83-4.51); Lymphocyte % 9.2 % (19-41); Mean Corp Hgb Conc 33.8 g/dL (32-36); Mean Corpuscular Hgb 29.9 pg (27.0-32.0); Mean Corpuscular Volume 88.4 fL (80-94); Mean Platelet Vol. 12.4 fl (6.2-12.0); Monocyte# 0.73 X10^3/uL; Monocyte% 13.1 % (0-10); NRBC Flagged by Analyzer 0 % (0-5); Neutrophil # 4.26 X10^3/uL (2.7-7.7); Neutrophil % 76.5 % (47-70); POSITIVE DIFFERENTIAL YES; Platelet Count 128 K/mm3 (150-450); RBC Distribution Width CV 12.4 % (11.6-14.6); RBC Distribution Width SD 40.3 fl (35.1-43.9); Red Blood Count 4.75 M/mm3 (4.6-6.2); White Blood Count 5.6 K/mm3 (4.4-11.0)
[2023-03-27 01:40] LABS: Differential Indicated SCAN CRITERIA MET
[2023-03-27] MEDS: 0.9% Normal Saline 1,000 ML 1000 ML IV (01:41)
[2023-03-27] MEDS: Ondansetron 4 MG/2 ML Vial IV (01:41)
[2023-03-27] MEDS: Ketorolac 30 MG/ML Syringe IV (01:41)
[2023-03-27] MEDS: Morphine 4 MG/ML Syringe IV (01:42)
[2023-03-27 01:46] LABS: Differential Comment SCANNED
--- NOTE | 2023-03-27 01:50 | CT_ITS ---
EXAM: CT ABDOMEN AND PELVIS WITHOUT INTRAVENOUS CONTRAST CLINICAL INDICATION: Flank pain TECHNIQUE: Helically acquired images were obtained of the abdomen and pelvis without intravenous contrast. This CT exam was performed using one or more of the following dose reduction techniques: automated exposure control, adjustment of the mA and/or kV according to patient size, and/or use of iterative reconstruction technique. COMPARISON: 03/18/2022 FINDINGS: LOWER THORAX: Unremarkable. Lung bases are clear. No cardiomegaly. No significant pericardial effusion. ABDOMEN: LIVER: Unremarkable. Homogeneous. GALLBLADDER AND BILE DUCTS: Unremarkable. No calcified gallstones. No gallbladder distention or wall edema. No intra- or extrahepatic biliary ductal dilation. PANCREAS: Unremarkable. No focal cystic mass. SPLEEN: Unremarkable. Normal size without focal cystic or solid mass. ADRENALS: Unremarkable. No nodules. KIDNEYS AND URETERS: Unremarkable. Normal renal size and position. No urinary stone or renal obstruction. STOMACH AND BOWEL: Moderate amount of stool in the colon. No stomach or bowel distention. No focal inflammatory change. PELVIS: APPENDIX: The appendix is normal. BLADDER: Unremarkable. REPRODUCTIVE: Unremarkable as visualized. No mass. ABDOMEN and PELVIS: INTRAPERITONEAL SPACE: Unremarkable. No ascites or other fluid collection. No free air. BONES/JOINTS: Unremarkable. No suspicious lytic or blastic abnormality. SOFT TISSUES: Unremarkable. No discrete abdominal or pelvic wall hernia. VASCULATURE: Unremarkable. Abdominal aorta is non-dilated. LYMPH NODES: Unremarkable. No enlarged lymph nodes. CT/Abdomen/Pelvis without Cont IMPRESSION: 1. No acute abnormalities identified in the abdomen/pelvis. 2. No nephrolithiasis. 3. Moderate amount of stool in the colon. Electronically Signed: Jerome Payne MD at 2:31 EDT ,
[2023-03-27 01:53] LABS: Anion Gap 8 (5-15); BUN 8 mg/dL (7-18); BUN/Creat Ratio 7.1 RATIO (10-20); Calcium,Total 8.9 mg/dL (8.5-10.1); Chloride 100 mmol/L (98-107); Creatinine, Serum 1.12 mg/dL (0.70-1.30); EST Glomerular Filtration Rate 81 mL/min (>60); Est Glom Filt Rate - Afr Amer 98 mL/min (>60); Estimated Creatinine Clearance 83.44 ml/min; Glucose 133 mg/dL (74-106); Potassium 3.4 mmol/L (3.5-5.1); Sodium Level 132 mmol/L (136-145)
[2023-03-27 02:05] LABS: Mucous, Urine 0 SEEN /hpf (<or=2+); Red Blood Cells-Urine 0 SEEN /hpf (0-5); Squamous Epithelial Cells - UA 0 SEEN /hpf (0-5); White Blood Cells 0 SEEN /hpf (0-5)
[2023-03-27 02:06] LABS: Color, Urine Yellow (Yellow); Glucose, Dipstick Normal (Normal); Ketone-Dipstick Negative (Negative); Leukocyte Esterase-Dipstick Negative /ul (Negative); Nitrite-Dipstick Negative (Negative); Occult Blood-Urine 25 /ul (Negative); Protein-Dipstick Negative (Negative); Urine Bilirubin Dipstick Negative (Negative); Urine Clarity Clear (Clear); Urine Urobilinogen Normal (Normal)
[2023-03-27 02:11] LABS: Bacteria RARE /hpf (None Seen)
--- NOTE | 2023-03-27 02:43 | EDS_ITS ---
HPI History of Present Illness Chief Complaint: Flank Pain Informant: patient Onset/Context/Timing Onset: Yesterday Context: Sudden Onset Timing: Continuous Quality: Sharp Location: Bilateral flanks Worsened by: Nothing Relieved by: Heat Narrative Narrative: Patient presents with bilateral flank pain that began yesterday. Patient states it began rather suddenly. Patient states it has been constant. Patient describes his pain as sharp. Patient states it gets better with heat. Patient states he was in a hot tub which seemed to help. Patient states nothing makes it worse. Patient admits to some dysuria but denies any hematuria. Patient is unable to find position of comfort. Patient admits to nausea but denies any vomiting. Patient admits to some subjective chills. [facility] Medical History Arthritis Asthma Chronic nausea Constipation Kidney stones Marijuana abuse Nausea & vomiting Symptomatic bradycardia Tobacco abuse Weight loss Home Medications terbutaline 2.5 mg tablet 2.5 mg PO 4X/DAY PRN 09/30/22 [History Last Taken Unknown] fludrocortisone 0.1 mg tablet 0.1 mg PO DAILY 11/19/22 [History Last Taken Unknown] pantoprazole 40 mg tablet,delayed release 40 mg PO BID #180 tabs 01/07/23 [Rx Last Taken Unknown] jfdryo-hmobaepd-ghmhndx 3,000-10,000-14,000 unit capsule,delayed rel (Zenpep) 3 cap PO DAILY #320 caps 01/22/23 [Rx Last Taken Unknown] ondansetron HCl 8 mg tablet 8 mg PO Q12H PRN nausea and vomiting #30 tabs 02/24/23 [Rx Last Taken Unknown] naproxen 500 mg tablet 500 mg PO BID PRN #20 tabs 03/27/23 [Rx Last Taken Unknown] Allergy/AdvReac Type Severity Reaction Status Date / Time amoxicillin Allergy Anaphylaxis Verified 03/27/23 00:41 Penicillins [PCN] Allergy Anaphylaxis Verified 03/27/23 00:41 Family History Mother Acute Crohn's disease Brother Family history of GERD Other Arthritis Diabetes Surgical History History of abdominal surgery History of brain surgery Social History Smoking Status: Current every day smoker tobacco type: cigarettes Electronic Cigarette Use: with nicotine alcohol intake: current alcohol intake frequency: holidays/special occasions only Alcohol type: beer substance use type: marijuana caffeine: Yes (1 pop once or twice a week) what type of physical activity do you participate in: none ROS ROS ED Constitutional Constitutional ED: Reports chills and subjective; Denies fever(s) Eyes Eyes: Denies blurry vision or change in vision ENT ENT ED: Denies rhinorrhea or sore throat Cardiovascular Cardiovascular: Denies chest pain or palpitations Respiratory/Chest Respiratory/Chest: Denies cough or dyspnea Gastrointestinal Gastrointestinal: Reports nausea; Denies vomiting Genitourinary Genitourinary ED: Reports dysuria; Denies hematuria Musculoskeletal Musculoskeletal: Reports back pain; Denies neck pain Integumentary Denies abscess or rash Neurologic Neurologic: Reports headache(s); Denies weakness Allergic/Immunologic Allergic/Immunologic ED: Denies mouth swelling or urticaria EXAM Physical Exam Const Vital Signs: 03/27/23 00:41 Temperature 99 F Temperature Source Temporal Pulse Rate 98 Respiratory Rate 18 Blood Pressure 136/91 H Blood Pressure Mean 106 Pulse Ox 96 Oxygen Delivery Method Room Air Positive well nourished and well developed General Appearance ED: well developed HEENT Reports moist mucous membranes Neck supple and no JVD Resp normal respiratory effort and clear to auscultation bilaterally Cardio regular rate, regular rhythm and no murmurs GI normal to inspection, nondistended, normoactive bowel sounds and non-tender Palpation: soft Back/Spine General Back: CVA tenderness bilateral Extremity normal to inspection General Extremety ED: Negative for edema or tenderness General Extremity: Negative for edema Neuro oriented x3, CN's II-XII intact bilaterally and no sensory deficits noted Sensorium / Orientation: alert Motor Exam: strength 5/5 throughout Psych mental status grossly normal Skin no rashes or lesions noted MDM MDM MDM Narrative Medical decision making narrative: Differential diagnosis includes pyelonephritis, ureteral calculus, bowel obstruction, perforation, gastritis, musculoskeletal pain, and pancreatitis. CBC will be obtained to assess for leukocytosis and anemia. Basic metabolic profile will be obtained to assess for electrolyte abnormality and renal function. Lipase will be obtained to assess for pancreatitis. Urinalysis will be obtained to assess for urinary tract infection and hematuria. CT scan of the abdomen pelvis will be obtained to assess for ureteral calculus, renal calculus, bowel obstruction, and perforation. Lab Data Attestation: I reviewed the patient's lab results. Lab results narrative: CBC was reviewed and was within normal limits. Basic metabolic profile was reviewed and was essentially within normal limits. Urinalysis was reviewed. There is no evidence of urinary tract infection or hematuria. Lipase was reviewed and was normal. Labs: Laboratory Results - last 24 hr 03/27/23 03/27/23 03/27/23 01:12 01:12 01:12 WBC 5.6 RBC 4.75 Hgb 14.2 Hct 42.0 MCV 88.4 MCH 29.9 MCHC 33.8 RDW Std Deviation 40.3 RDW Coeff of Gregorio 12.4 Plt Count 128 L MPV 12.4 H Immature Gran % (Auto) 0.700 Neut % (Auto) 76.5 H Lymph % (Auto) 9.2 L Reynolds % (Auto) 13.1 H Eos % (Auto) 0.0 Baso % (Auto) 0.5 Absolute Neuts (auto) 4.3 Absolute Lymphs (auto) 0.51 L Nucleated RBC % 0 Differential Comment SCANNED Sodium 132 L Potassium 3.4 L Chloride 100 Carbon Dioxide 24.0 Anion Gap 8 BUN 8 Creatinine 1.12 Estim Creat Clear Calc 83.44 Est GFR (MDRD) Af Amer 98 Est GFR (MDRD) Non-Af 81 BUN/Creatinine Ratio 7.1 L Glucose 133 H Calcium 8.9 Lipase 14 Urine Color Urine Clarity Urine pH Ur Specific [place] Urine Protein Urine Glucose (UA) Urine Ketones Urine Occult Blood Urine Nitrite Urine Bilirubin Urine Urobilinogen Ur Leukocyte Esterase Urine RBC Urine WBC Ur Squamous Epith Cells Urine Bacteria Urine Mucus 03/27/23 02:00 WBC RBC Hgb Hct MCV MCH MCHC RDW Std Deviation RDW Coeff of Gregorio Plt Count MPV Immature Gran % (Auto) Neut % (Auto) Lymph % (Auto) Reynolds % (Auto) Eos % (Auto) Baso % (Auto) Absolute Neuts (auto) Absolute Lymphs (auto) Nucleated RBC % Differential Comment Sodium Potassium Chloride Carbon Dioxide Anion Gap BUN Creatinine Estim Creat Clear Calc Est GFR (MDRD) Af Amer Est GFR (MDRD) Non-Af BUN/Creatinine Ratio Glucose Calcium Lipase Urine Color Yellow Urine Clarity Clear Urine pH 8.0 Ur Specific [place] 1.010 Urine Protein Negative Urine Glucose (UA) Normal Urine Ketones Negative Urine Occult Blood 25 H Urine Nitrite Negative Urine Bilirubin Negative Urine Urobilinogen Normal Ur Leukocyte Esterase Negative Urine RBC 0 SEEN Urine WBC 0 SEEN Ur Squamous Epith Cells 0 SEEN Urine Bacteria RARE Urine Mucus 0 SEEN Radiography Diagnostic Testing: Clinical Impression(s) from Imaging Studies Abdomen/Pelvis CT 03/27/23 01:50 IMPRESSION: 1. No acute abnormalities identified in the abdomen/pelvis. 2. No nephrolithiasis. 3. Moderate amount of stool in the colon. Electronically Signed: Jerome Payne MD at 2:31 EDT , CT scan of the abdomen and pelvis was obtained. There is no acute abnormality noted. There is moderate stool in the colon. There is no ureteral calculus, hydronephrosis, or hydroureter. This was interpreted by the radiologist and was also independently reviewed by myself. Treatment and Re-Evaluation :: Patient was given IV fluids, morphine, Zofran, and Toradol. Patient is feeling better on reevaluation. Patient was advised of his findings. Patient was given a prescription for Naprosyn. Patient was instructed to drink plenty of fluids. Patient was instructed to follow-up with his primary care physician in 5 to 7 days. Patient understood and was agreeable with the plan. All questions were answered. Discharge Plan Triage Chief Complaint: Flank Pain ED Provider: Orlando Lopez Dx/Rx/DC Orders Clinical Impression: Bilateral flank pain, Tobacco abuse Instructions: ED Flank Pain, Uncertain Cause Prescriptions: New naproxen 500 mg tablet 500 mg PO BID PRN Qty: 20 0RF No Action fludrocortisone 0.1 mg tablet 0.1 mg PO DAILY terbutaline 2.5 mg tablet 2.5 mg PO 4X/DAY PRN Label Comments: TAKE 1 TABLET BY MOUTHDFOUR TIMES A DAY NEEDED pantoprazole 40 mg tablet,delayed release (DR/EC) 40 mg PO BID Qty: 180 3RF Zenpep 3,000-10,000 -14,000-unit capsule,delayed release(DR/EC) 3 cap PO DAILY Qty: 320 11RF Rx Instructions: take three with meals and one to two with snacks. ondansetron HCl 8 mg tablet 8 mg PO Q12H PRN (Reason: nausea and vomiting) Qty: 30 1RF Primary Care Provider: Care Physician,No Primary Referrals: Raquel Colindres MD [Med Staff - Accounts Payable Specialist] - 5-7 Days Care Physician,No Primary [Primary Care Provider] - Disposition Disposition: Home, Self Care
[2023-03-27 03:09] LABS: Lipase 14 U/L (13-75)
[2023-03-27 03:29] VITALS: RESP 18
== END 2023-03-27 03:30 | disposition home or self-care (01) ==
PROVIDERS: Emergency Provider Emergency Medicine; Visit Provider Emergency Medicine
DX: R10.9 Unspecified abdominal pain (principal); F17.210 Nicotine dependence, cigarettes, uncomplicated; J45.909 Unspecified asthma, uncomplicated; Z79.899 Other long term (current) drug therapy
CPT/HCPCS: 74176; 80048; 81001; 83690; 85025; 96361; 96374; 96375; 99283; J7030; A4216; J2405

== ENCOUNTER 2023-04-30 12:30 | Outpatient (RCR) | payer OTHER, MEDICAID, SELFPAY ==
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
--- NOTE | 2023-04-30 13:54 | HP.PTREVAL ---
BURTON Rodriguez, It has been my pleasure to treat AISHWARYA VASQUEZ over the last 10 visits for Displaced fx of left lateral end clavicle, S42.032D. Please see the progress note below for an update on the physical therapy plan of care! Subjective: L shoulder pain remains at 5/10. Pt reports pain has remained unchanged. ROM is better Objective/Function: L shoulder pain ranges from 5-10/10. L shoulder ROM: L shoulder flex= 80, abd= 90 degrees. L shoulder MMT: 3-/5 throughout. Pt is not showing significant progress at this time. Plan Plan: Cont or discharge pending DrAilin visit Balance/Gait/Functional tests - Balance/Special Test Scores Quick DASH Score: 72.7250 Goals Goal 1:: Pt. will improve left shoulder AROM flexion and abduction > 160 degrees in order to improve reaching overhead. Goal Time Frame: 6-8 Weeks Goal Progress: Progressing Goal 2:: Pt. will improve left shoulder strength to 4/5 for all motions in order to return to work activity. Goal Time Frame: 6-8 Weeks Goal Progress: Progressing Goal 3:: Pt. will be able to sleep a full night with no left shoulder pain. Goal Time Frame: 6-8 Weeks Goal Progress: Not Progressing Goal 4:: Pt. will be able to lift at least 15# overhead with left shoulder pain < 3/10. Goal Time Frame: 6-8 Weeks Goal Progress: Not Progressing Goal 5:: Pt. will be able to return to work activity with left shoulder pain < 3/10. Goal Time Frame: 6-8 Weeks Goal Progress: Not Progressing Goal 6:: Pt. will improve Quick Dash score < 50% impairment in order to improve ADL's and IADL's. Goal Time Frame: 6-8 Weeks Goal Progress: Progressing Anticipated Interventions Patient/Client Instruction: Educate patient on: Condition, Plan of Care For the Purpose of:: To decrease pain, To decrease swelling/inflammation, To increase ROM, To improve ability to perform ADL's, To improve performance and independence with ADL's, To increase flexibility/ROM, To assume or resume ADL's, To improve tolerance to ADL's Therapeutic Exercise to Include: Strength training, Passive ROM, Active ROM, Scapular Strength/Stabilization Comment: Begin with improving shoulder PROM, AAROM, and AROM. Progress to shoulder RTC/scapular strengthening as tolerated. For the Purpose of:: To decrease pain, To increase ROM, To improve ability to perform ADL's, To improve performance and independence with ADL's, To increase flexibility/ROM, To assume or resume ADL's, To improve tolerance to ADL's Manual Therapy Techniques to Include: Passive ROM For the Purpose of:: To decrease pain, To increase ROM, To improve ability to perform ADL's, To improve performance and independence with ADL's, To increase flexibility/ROM, To assume or resume ADL's, To improve tolerance to ADL's Cryotherapy (ice pack, ice massage): Yes Thermo therapy (hot pack): Yes For the Purpose of:: To decrease pain, To increase ROM, To improve ability to perform ADL's, To improve performance and independence with ADL's, To increase flexibility/ROM, To improve tolerance to ADL's Please do not hesitate to contact me at [phone] by phone or if you have questions or concerns regarding this new plan of care! Sincerely, Jerome Morales, PT, ATC
--- NOTE | 2023-07-28 13:20 | HP.PT.NRP ---
Patient Information Patient Information: AISHWARYA VASQUEZ was seen in my office for initial evaluation on 03/18/23. The following Plan of Care was established for this patient: POC Established Initial Frequency: 2x /Week Initial Duration: 2 Months Anticipated Interventions Patient/Client Instruction: Educate patient on: Condition and Plan of Care For the Purpose of:: To decrease pain, To decrease swelling/inflammation, To increase ROM, To improve ability to perform ADL's, To improve performance and independence with ADL's, To increase flexibility/ROM, To assume or resume ADL's and To improve tolerance to ADL's Therapeutic Exercise to Include: Strength training, Passive ROM, Active ROM and Scapular Strength/Stabilization For the Purpose of:: To decrease pain, To increase ROM, To improve ability to perform ADL's, To improve performance and independence with ADL's, To increase flexibility/ROM, To assume or resume ADL's and To improve tolerance to ADL's Manual Therapy Techniques to Include: Passive ROM For the Purpose of:: To decrease pain, To increase ROM, To improve ability to perform ADL's, To improve performance and independence with ADL's, To increase flexibility/ROM, To assume or resume ADL's and To improve tolerance to ADL's Cryotherapy (ice pack, ice massage): Yes Thermo therapy (hot pack): Yes For the Purpose of:: To decrease pain, To increase ROM, To improve ability to perform ADL's, To improve performance and independence with ADL's, To increase flexibility/ROM and To improve tolerance to ADL's Last Seen Last Seen: This patient was last seen in our office . Pertinent comments regarding their Physical therapy will appear below: Pt was treated for 10 PT visits for L shoulder pain through the date of 04/30/23. Pt has not returned through this date and is discontinued at this time. At this point I will be discontinuing this patient from physical therapy. I would be happy to see this patient again in the future if found appropriate by the physician. Thank you! Jerome Morales, PT, ATC Balance/Gait/Functional tests Balance/Special Test Scores Quick DASH Score: [phone]
== END 2023-04-30 19:00 | disposition home or self-care (01) ==
LOC: PT 12:30
PROVIDERS: Referring Provider Physician Assistant; Visit Provider Physician Assistant
DX: S42.032D Displaced fracture of lateral end of left clavicle, subsequent encounter for fracture with routine healing (principal)
CPT/HCPCS: 97110; 97161; 97164

== ENCOUNTER 2023-06-08 23:08 | Emergency (ER) | payer MEDICAID, SELFPAY ==
[2023-06-08 23:10] VITALS: BP 183/101; PULSE 63; RESP 18; TEMP 36.7; O2SAT 100; BMI 19.3
--- NOTE | 2023-06-08 23:19 | EDS_ITS ---
HPI History of Present Illness Chief Complaint: Dental Detail of Chief Complaint: Dental pain Informant: patient Narrative Narrative: Patient presents to the emergency department complaint dental pain that started 2 days ago. Patient states that he has very poor dentition and needs to have dental extractions. Patient states that he just got his insurance and will be making an appointment with a dentist to have his teeth pulled. He denies any fever. PFSH [facility] Medical History Arthritis Asthma Chronic nausea Constipation Kidney stones Marijuana abuse Nausea & vomiting Symptomatic bradycardia Tobacco abuse Weight loss Home Medications terbutaline 2.5 mg tablet 2.5 mg PO 4X/DAY PRN 09/30/22 [History Last Taken Unknown] fludrocortisone 0.1 mg tablet 0.1 mg PO DAILY 11/19/22 [History Last Taken Unknown] pantoprazole 40 mg tablet,delayed release 40 mg PO BID #180 tabs 01/07/23 [Rx Last Taken Unknown] fkbjnp-fargriru-qbmglwg 3,000-10,000-14,000 unit capsule,delayed rel (Zenpep) 3 cap PO DAILY #320 caps 01/22/23 [Rx Last Taken Unknown] ondansetron HCl 8 mg tablet 8 mg PO Q12H PRN nausea and vomiting #30 tabs 02/24/23 [Rx Last Taken Unknown] naproxen 500 mg tablet 500 mg PO BID PRN #20 tabs 03/27/23 [Rx Last Taken Unknown] clindamycin HCl 300 mg capsule (Cleocin HCl) 300 mg PO Q6H #40 CAPSULES 06/08/23 [Rx Last Taken Unknown] hydrocodone-acetaminophen 5-325mg 5mg-325mg 1 tab PO Q4H PRN PRN Pain 2 days #10 TABLETS 06/08/23 [Rx Last Taken Unknown] Allergy/AdvReac Type Severity Reaction Status Date / Time amoxicillin Allergy Anaphylaxis Verified 06/08/23 23:10 Penicillins [PCN] Allergy Anaphylaxis Verified 06/08/23 23:10 Family History Mother Acute Crohn's disease Brother Family history of GERD Other Arthritis Diabetes Surgical History History of abdominal surgery History of brain surgery Social History Smoking Status: Current every day smoker tobacco type: cigarettes Electronic Cigarette Use: with nicotine alcohol intake: current alcohol intake frequency: holidays/special occasions only Alcohol type: beer substance use type: marijuana caffeine: Yes (1 pop once or twice a week) what type of physical activity do you participate in: none ROS ROS ED Review of Systems ROS Unobtainable: other Constitutional Constitutional ED: Reports lethargy; Denies chills, fever(s), sweats or weight loss Eyes Eyes: Denies blurry vision, change in vision or diplopia ENT ENT ED: Reports other Details: Right upper dental pain ; Denies rhinorrhea or sore throat Cardiovascular Cardiovascular: Denies chest pain, orthopnea or racing heartbeat Respiratory/Chest Respiratory/Chest: Denies cough, dyspnea, dyspnea on exertion, orthopnea or sputum Gastrointestinal Gastrointestinal: Denies abdominal pain, diarrhea, nausea or vomiting Genitourinary Genitourinary ED: Denies dysuria, hematuria or urinary frequency Musculoskeletal Musculoskeletal: Denies arthralgias, back pain, myalgias or neck pain Integumentary Denies abscess, Abrasions or rash Neurologic Neurologic: Denies headache(s) or weakness Psychiatric Psychiatric: Denies anxiety, depression or suicidal thoughts Endocrine Endocrinology: Denies polydipsia, polyphagia or polyuria Hematologic/Lymphatic Hematologic/Lymphatic: Denies easy bleeding, easy bruising or lymphadenopathy Allergic/Immunologic Allergic/Immunologic ED: Denies mouth swelling, tongue swelling or urticaria EXAM Physical Exam Const Vital Signs: 06/08/23 23:10 Temperature 98.1 F Temperature Source Temporal Pulse Rate 63 Respiratory Rate 18 Blood Pressure 183/101 H Blood Pressure Mean 128 Pulse Ox 100 Oxygen Delivery Method Room Air Positive well nourished and well developed General Appearance ED: well developed and NAD HEENT Reports TM's clear and moist mucous membranes HEENT Narrative: Dentition-patient has multiple broken and carried teeth diffusely to the upper and lower teeth. He has tenderness over teeth numbers 4 5 and 6 right upper. No gingival abscess noted. Mild significant erythema to the area. No trismus on exam. No facial cellulitis. Mild soft tissue swelling to the right upper cheek. normocephalic and atraumatic; Negative for trauma or tenderness Tympanic Membrane ED: Yes TM's clear Eyes PERRL and EOMs intact bilaterally General Eye ED: Negative for pale conjunctiva or scleral icterus Neck no lymphadenopathy, supple and no JVD General: Negative for tenderness Chest Wall inspection of chest normal and palpation of chest normal Chest: Negative for tenderness Resp normal respiratory effort and clear to auscultation bilaterally Effort and Inspection: Negative for respiratory distress or pain with movement Auscultation: Negative for rhonchi, wheezes or diminished lung sounds Cardio regular rate, regular rhythm, S1 normal heart sound, S2 normal heart sound and no murmurs Peripheral Pulses: pulses 2+ throughout GI normal to inspection, nondistended, normoactive bowel sounds, soft to palpation, non-tender, non-distended and no masses Back/Spine no CVA tenderness and no thoracic nor lumbar tenderness Extremity normal to inspection General Extremety ED: Negative for edema General Extremity: Negative for edema Neuro oriented x3, CN's II-XII intact bilaterally, no sensory deficits noted and gait normal Sensorium / Orientation: awake, alert, oriented to person, oriented to place and oriented to time Motor Exam: strength 5/5 throughout and strength abnormal Psych mental status grossly normal Skin no rashes or lesions noted and no wounds MDM MDM MDM Narrative Medical decision making narrative: Patient allergic to penicillin. Will start on clindamycin. Will give 1 dose of [place]. Patient will be given a list of dentists in the area to follow-up with. Patient with dental caries and start of possible early abscess formation. Discharge Plan Triage Chief Complaint: Dental ED Provider: Ayse Ochoa Dx/Rx/DC Orders Clinical Impression: Pain, dental Instructions: ED Dental Pain, ED Dental Abscess Prescriptions: New clindamycin HCl [Cleocin HCl] 300 mg capsule 300 mg PO Q6H Qty: 40 0RF hydrocodone-acetaminophen [hydrocodone-acetaminophen] 5-325 mg tablet 1 tab PO Q4H PRN PRN (Reason: Pain) 2 Days Qty: 10 0RF No Action fludrocortisone 0.1 mg tablet 0.1 mg PO DAILY terbutaline 2.5 mg tablet 2.5 mg PO 4X/DAY PRN Patient Comments: TAKE 1 TABLET BY MOUTHDFOUR TIMES A DAY NEEDED naproxen 500 mg tablet 500 mg PO BID PRN Qty: 20 0RF pantoprazole 40 mg tablet,delayed release (DR/EC) 40 mg PO BID Qty: 180 3RF Zenpep 3,000-10,000 -14,000-unit capsule,delayed release(DR/EC) 3 cap PO DAILY Qty: 320 11RF Rx Instructions: take three with meals and one to two with snacks. ondansetron HCl 8 mg tablet 8 mg PO Q12H PRN (Reason: nausea and vomiting) Qty: 30 1RF Primary Care Provider: Care Physician,No Primary Referrals: Care Physician,No Primary [Primary Care Provider] - Activity Restrictions/Additional Instructions: Follow-up with a dentist at the earliest possible time. Disposition Disposition: Home, Self Care
[2023-06-08] MEDS: Clindamycin HCl 150 MG Capsule 300 MG PO (23:29)
[2023-06-08] MEDS: HYDROcodone Bitartrate/Apap 5/325 Tablet PO (23:30)
== END 2023-06-09 01:09 | disposition home or self-care (01) ==
LOC: ED 23:30
PROVIDERS: Emergency Provider Emergency Medicine; Visit Provider Emergency Medicine
DX: K08.89 Other specified disorders of teeth and supporting structures (principal); F17.210 Nicotine dependence, cigarettes, uncomplicated; J45.909 Unspecified asthma, uncomplicated; Z79.899 Other long term (current) drug therapy; F17.290 Nicotine dependence, other tobacco product, uncomplicated; K02.9 Dental caries, unspecified
CPT/HCPCS: 99281; 99283

== ENCOUNTER → 2023-07-14 | Outpatient (CLI) | payer MEDICAID, SELFPAY ==
--- NOTE | 2023-07-14 12:27 | RAD_ITS ---
CLINICAL HISTORY: Male, 33 years old. Left clavicular fracture. PROCEDURE: ARTHROGRAM - LEFT SHOULDER. CONSENT: The procedure as well as the benefits and possible complications including infection and bleeding were explained to the patient. Informed consent was obtained. FLUOROSCOPY TIME (if supplied): (1 minute and 4 seconds.) minutes/seconds. 10.58 mGy Injection Information: 10 cc of dilute MRI contrast. Number of images obtained: 4 TECHNIQUE: (All elements of maximal sterile barrier technique followed, including US elements as applicable) The patient was in the supine position. The overlying skin was prepped and draped in the usual sterile fashion. Following local anesthetic application under direct fluoroscopic guidance, a 22-gauge spinal needle was placed into the shoulder joint. 2 cc of nonionic contrast was injected for confirmation. Following this, 10 cc of dilute MRI contrast was injected. The patient tolerated the procedure well. RAD/Arthrogram Shoulder w/ MRI IMPRESSION: Successful left shoulder arthrogram for MRI examination. Electronically Signed: Vishal Amador MD at 14:31 EDT ,
--- NOTE | 2023-07-14 12:32 | MRI_ITS ---
EXAM: MR LEFT UPPER EXTREMITY ARTHROGRAM WITH INTRAVENOUS CONTRAST, SHOULDER CLINICAL INDICATION: LEFT SHOULDER PAIN -- ARTHROGRAM TECHNIQUE: Multiplanar and multisequence MR images of the left shoulder following injection of dilute gadolinium into the joint space. CONTRAST: 10ml arthrogram solution intra articular COMPARISON: No relevant prior studies available. FINDINGS: ARTIFACTS: Motion artifact limits assessment. TENDONS: SUPRASPINATUS: Unremarkable. Intact. INFRASPINATUS: Unremarkable. Intact. SUBSCAPULARIS: Unremarkable. Intact. TERES MINOR: Unremarkable. Intact. BICEPS BRACHII, LONG HEAD: Unremarkable. The extra-articular biceps tendon is in the bicipital groove. The intra-articular biceps tendon is normal. LIGAMENTS: GLENOHUMERAL: Unremarkable. Intact. MUSCLES: Unremarkable. No rotator cuff muscle atrophy. FLUID: Unremarkable. No subacromial-subdeltoid space bursal fluid. CARTILAGE: Unremarkable. Articular cartilage intact. GLENOID LABRUM: There is a tear of the posterior labrum. BONES/JOINTS: Glenohumeral joint is adequately distended with dilute gadolinium contrast solution. Type II acromion with curved undersurface. No subacromial enthesophyte. No os acromiale. OTHER SOFT TISSUES: Unremarkable. No rotator interval edema. MRI/Upper Ext Jt Only W/Contrast IMPRESSION: 1. Posterior labral tear. 2. No rotator cuff tear. No other significant internal derangement. Electronically Signed: Michael Joshi MD at 3:30 EDT Reading Location ID and State: [address] [place] [address] Tel , Service support ,
[2023-07-14] MEDS: Iopamidol 10 ML in Syringe 1 EACH 600 ML INTRAARTIC (13:20)
[2023-07-14] MEDS: Gadoterate Meglumine Diluted 10 ML, Iopamidol 5 ML, Lidocaine 1% (20 ml mdv) 5 ML, Epin... INTRAARTIC (13:20)
[2023-07-14] MEDS: Lidocaine 2% (5ml sdv) 5 ML VIAL.MPF INFILT (13:20)
== END | disposition home or self-care (01) ==
LOC: RAD 12:24
PROVIDERS: Referring Provider Orthopaedic Surgery Sports Medicine; Visit Provider Orthopaedic Surgery Sports Medicine
DX: S42.002A Fracture of unspecified part of left clavicle, initial encounter for closed fracture (principal)
CPT/HCPCS: 23350; 73222; 77002; Q9967

== ENCOUNTER 2023-08-25 06:54 | Day surgery (SDC) | payer MEDICAID, SELFPAY ==
[2023-08-25] VITALS (7 sets, daily range): BP systolic 120–133; BP diastolic 79–100; PULSE 50–74; RESP 16; TEMP 36.3–37.2; O2SAT 96–100; BMI 18.9
--- NOTE | 2023-08-25 07:14 | PCM.HP.STD ---
HPI - General HPI Narrative AISHWARYA VASQUEZ, is a 33 M who presents for left shoulder arthroscopy and stabilization for a posterior labral tear and instability of the shoulder. No changes to history and physical exam. Patient wishes to proceed. Risks alternatives benefits discussed and narcotic postoperative counseling. Left shoulder marked. No current questions or concerns. MR#: [id number] Acct: [id number] Name: AISHWARYA VASQUEZ Rep #: [id number] : 1990 Provider: Dr. Brando Lawson MD Age/Sex: 33/M Location[place] [facility] Status: Signed Intake Vital Signs 06/08/2323:10 Height 5 ft 10 in Weight: 135 lb BMI 19.3 BP 183/101 H Respiration 18 Pulse 63 Temp 98.1 F Temp Source Temporal Pulse Oximetry (%) 100 Intake Visit Reasons: LEFT KNEE Chief Complaint: Left Clavical MRI review Accompanied by: Is patient in pain?: Yes Pain scale (1-10): 5 Allergies amoxicillin Allergy (Verified 07/30/23 14:03) AnaphylaxisPenicillins [PCN] Allergy (Verified 07/30/23 14:03) Anaphylaxis Medications terbutaline 2.5 mg tablet 2.5 mg PO 4X/DAY PRN 09/30/22 [History Confirmed 07/30/23] fludrocortisone 0.1 mg tablet 0.1 mg PO DAILY 11/19/22 [History Confirmed 07/30/23] pantoprazole 40 mg tablet,delayed release 40 mg PO BID #180 tabs 01/07/23 [Rx Confirmed 07/30/23] uzdiln-berpsfac-kxfjoyj 3,000-10,000-14,000 unit capsule,delayed rel (Zenpep) 3 cap PO DAILY #320 caps 01/22/23 [Rx Confirmed 07/30/23] ondansetron HCl 8 mg tablet 8 mg PO Q12H PRN nausea and vomiting #30 tabs 02/24/23 [Rx Confirmed 07/30/23] naproxen 500 mg tablet 500 mg PO BID PRN #20 tabs 03/27/23 [Rx Confirmed 07/30/23] clindamycin HCl 300 mg capsule (Cleocin HCl) 300 mg PO Q6H #40 CAPSULES 06/08/23 [Rx Confirmed 07/30/23] hydrocodone-acetaminophen 5-325mg 5mg-325mg 1 tab PO Q4H PRN PRN Pain 2 days #10 TABLETS 06/08/23 [Rx Confirmed 07/30/23] pindolol 5 mg tablet 5 mg PO 06/15/23 [History Confirmed 07/30/23] PFSH Medical History Arthritis Asthma Chronic nausea Closed left clavicular fracture Constipation Instability of left shoulder joint Kidney stones Marijuana abuse Nausea & vomiting Symptomatic bradycardia Tobacco abuse Weight loss Surgical History History of abdominal surgery History of brain surgery Family History Mother Acute Crohn's diseaseBrother Family history of GERDOther Arthritis Diabetes Social History (Updated 06/15/23 @ 15:23 by Nora Cuevas) Smoking Status: Current every day smoker tobacco type: cigarettes Electronic Cigarette Use: with nicotine alcohol intake: current alcohol intake frequency: holidays/special occasions only Alcohol type: beer substance use type: marijuana caffeine: Yes (1 pop once or twice a week) what type of physical activity do you participate in: none HPI LEFT KNEE Details: Parts of this documentation were recorded by a scribe, this documentation accurately reflects the service provided and the decisions made by me, Dr. Brando Lawson MD 07/30/23 0910. AISHWARYA VASQUEZ is a 33 year old M here today for FU L shoulder MR arthrogram. The shoulder is still feels loose like it is clicking and clunking it is not stable. It hurts mostly in the front. He had a distal clavicle fracture in January about 5 months ago as well as feelings of shoulder instability when wrestling with a friend. Ortho Exam General General: Yes no acute distress Neurologic: Yes alert and Yes oriented x3 Psychologic: Yes reasonable and appropriate Left Shoulder Skin/Wound: Yes CDI, No ecchymosis, No erythema and No swelling Testing: Yes Hawkin's, Yes Neer's, No Speed's, No TTP Biceps, Yes TTP AC Joint, No Drop Arm, Yes AROM-Forward Elevation 0-180, Yes AROM-External Rotation at side 0-60, Yes Apprehension Test, No Sulcus Sign, No translation, Yes empty can, Yes Load and Shift, Yes jerk, No cross arm and Yes scapular winging (slight) SHOULDER: slight pain at distal clavicle, no instability there, feels solid. marked posterior instability positive Maryam test, pos posterior jerk, 2+ posterior instability. Supplemental Info [facility] [address] [place] [address] Upper Ext Jt Only W/Contrast MR#: [id number] Acct: [id number] Name: AISHWARYA VASQUEZ Rep #: [id number] : 1990 M 33 From: Michael Joshi MD PCP: Care Physician,No Primary Status: REG CLI Study: Upper Ext Jt Only W/Contrast Date of Exam: 07/14/23 Exam# [id number] Ordering Dr: Brando Lawson MD EXAM: MR LEFT UPPER EXTREMITY ARTHROGRAM WITH INTRAVENOUS CONTRAST, SHOULDER CLINICAL INDICATION: LEFT SHOULDER PAIN -- ARTHROGRAM TECHNIQUE: Multiplanar and multisequence MR images of the left shoulder following injection of dilute gadolinium into the joint space. CONTRAST: 10ml arthrogram solution intra articular COMPARISON: No relevant prior studies available. FINDINGS: ARTIFACTS: Motion artifact limits assessment. TENDONS: SUPRASPINATUS: Unremarkable. Intact. INFRASPINATUS: Unremarkable. Intact. SUBSCAPULARIS: Unremarkable. Intact. TERES MINOR: Unremarkable. Intact. BICEPS BRACHII, LONG HEAD: Unremarkable. The extra-articular biceps tendon is in the bicipital groove. The intra-articular biceps tendon is normal. LIGAMENTS: GLENOHUMERAL: Unremarkable. Intact. MUSCLES: Unremarkable. No rotator cuff muscle atrophy. FLUID: Unremarkable. No subacromial-subdeltoid space bursal fluid. CARTILAGE: Unremarkable. Articular cartilage intact. GLENOID LABRUM: There is a tear of the posterior labrum. BONES/JOINTS: Glenohumeral joint is adequately distended with dilute gadolinium contrast solution. Type II acromion with curved undersurface. No subacromial enthesophyte. No os acromiale. OTHER SOFT TISSUES: Unremarkable. No rotator interval edema. MRI/Upper Ext Jt Only W/Contrast IMPRESSION: 1. Posterior labral tear. 2. No rotator cuff tear. No other significant internal derangement. Electronically Signed: Michael Joshi MD at 3:30 EDT , moderate motion degredation, very difficult to interpret Coding Level of Care Code Off vis,est,level 3 Diagnoses Closed left clavicular fracture S42.002A Instability of left shoulder joint M25.312 Assessment and Plan Assessment and Plan (1) Closed left clavicular fracture: Status: Acute Plan: 33 M L shoulder pain, clavicle appears to have gone on to good bony union with minimal pain there and no instability however the patient definitely has posterior shoulder instability with quite a dramatic clunk and pain reproduced on physical exam as well as positive MRI findings of a posterior labral tear. We explained the pros cons risk benefits continue nonoperative management physical therapy strengthening and activity modifications versus left shoulder arthroscopy, stabilization (labrum repair). He wishes to have surgery. Explained the pros and cons risk benefits of that as well as recovery 2 to 3 weeks 6 weeks of avoiding external rotation and posterior loading as well as 4.5 months before getting back to aggressive dangerous activities. He understands wishes to proceed. He has symptomatic bradycardia but he is on medications for that and normally his heart rate is in the 70s. Pros and cons risks and benefits were discussed with the patient including but not limited to infection, pain, stiffness, bleeding, damage to surrounding structures, neurovascular injury, recurrence or retear, failure or wear of hardware or fixation, instability, fracture, deep vein thrombosis and pulmonary embolism, anesthetic risks, , patient dissatisfaction, need for further surgery and other risks. Patient understood and wished to proceed with surgery, and signed the informed consent documentation. [facility] Medical History (Updated 08/11/23 @ 15:46 by Denise Hawthorne) Alcohol use Arthritis Asthma Asthma Cardiology follow-up encounter Chronic nausea Closed left clavicular fracture Constipation Gastric reflux History of echocardiogram History of stress test Injury of back Instability of left shoulder joint Loss of consciousness Marijuana abuse Marijuana use Nausea & vomiting PTSD (post-traumatic stress disorder) Restless legs Seizures Shortness of breath on exertion Smoker Symptomatic bradycardia Tobacco abuse Weight loss Home Medications fludrocortisone 0.1 mg tablet 0.2 mg PO DAILY 11/19/22 [History Last Taken Unknown] pantoprazole 40 mg tablet,delayed release 40 mg PO BID #180 tabs 01/07/23 [Rx Last Taken Unknown] mdnhpo-rbfqyhzc-pywjubu 3,000-10,000-14,000 unit capsule,delayed rel (Zenpep) 3 cap PO DAILY #320 caps 01/22/23 [Rx Last Taken Unknown] ondansetron HCl 8 mg tablet 8 mg PO Q12H PRN nausea and vomiting #30 tabs 02/24/23 [Rx Last Taken Unknown] clindamycin HCl 300 mg capsule (Cleocin HCl) 300 mg PO Q6H #40 CAPSULES 06/08/23 [Rx Last Taken Unknown] hydrocodone-acetaminophen 5-325mg 5mg-325mg 1 tab PO Q4H PRN PRN Pain 2 days #10 TABLETS 06/08/23 [Rx Last Taken Unknown] verapamil 120 mg tablet,extended release 120 mg PO DAILY 08/11/23 [History Last Taken Unknown] Allergy/AdvReac Type Severity Reaction Status Date / Time amoxicillin Allergy Anaphylaxis Verified 08/25/23 07:18 Penicillins [PCN] Allergy Anaphylaxis Verified 08/25/23 07:18 Family History Mother Acute Crohn's disease Brother Family history of GERD Other Arthritis Diabetes Surgical History (Updated 08/11/23 @ 15:46 by Denise Hawthorne) History of abdominal surgery History of brain surgery Social History (Updated 06/15/23 @ 15:23 by Nora Cuevas) Smoking Status: Current every day smoker tobacco type: cigarettes Electronic Cigarette Use: with nicotine alcohol intake: current alcohol intake frequency: holidays/special occasions only Alcohol type: beer substance use type: marijuana caffeine: Yes (1 pop once or twice a week) what type of physical activity do you participate in: none Vital Signs Vital Signs Vital Signs: Weight Weight: 135 lb
[2023-08-25] MEDS: Lactated Ringers 1,000 ML 15 ML IV ×2 (07:31→12:55)
[2023-08-25] MEDS: Clindamycin 900 MG/50 ML BAG 75 MG IV (09:30)
[2023-08-25] MEDS: Epinephrine (1 mg/ml) 1 MG/ML VIAL (09:58)
--- NOTE | 2023-08-25 11:49 | PCM.OPRPT ---
Problems Associated Problem List Diagnoses (1) Instability of left shoulder joint: Report of Operation Date of Procedure: 08/25/23 Pre-Operative Diagnosis: L shoulder instability (labrum tear) Post-Operative Diagnosis: same Surgery/Procedure Performed:: L shoulder arthroscopic stabilization Surgeon: Brando Lawson Type of Anesthesia: Block,Regional and General Anesthesiologist: Austyn Baron Estimated Blood Loss (mL): 30 Description of Procedure: Patient brought to the operating room theater. Placed supine on the table. General anesthesia induced. Clindamycin 900 mg IV given due to penicillin allergy. All bony prominences padded. SCDs on the legs. Patient transferred left side up lateral decubitus position beanbag positioner and axillary roll in place. Upper extremity prepped and draped in the usual sterile fashion with chlorhexidine-based prep solution allowing over 3 minutes drying time prior to draping. Preoperative timeout performed to confirm the site patient and the surgery. 10 pounds of inline traction with the arm in 45 degrees abduction was used. Began by inserting the arthroscope into the intra-articular portion of the shoulder. Did a full diagnostic arthroscopy. Undersurface the rotator cuff was normal. Subscapularis appeared normal normal lever push. Normal cartilage on the humeral head and glenoid. Biceps tendon appeared normal no synovitis. There is labral tears at the 4 o'clock position at the anterior aspect of the labrum as well as partial fraying and detachment of the biceps root and also a tear from the 11:00 to the 6 o'clock position posteriorly. I placed cannulas 7 x 7 mm 1 anteriorly and 2 posteriorly. Used an elevator to free any scar tissue and adhesions. I then using a curved wire passing device with a nitinol wire passed a suture at the 4 o'clock position. I then shuttled labral tape to create a luggage tag type suture. I used the shaving device and high-speed deb to create a rough bed of healing both the anterior and posterior labrum as well as a superiorly for the minor slap tear. No bone loss. Anteriorly I repaired the labrum with one 2.0 mm push lock bio composite Arthrex anchor. We created a good solid bumper and tighten the capsule and labrum anteriorly with slight inferior to superior shift. I then put the camera anteriorly looking posteriorly. I used 4 (four) 1.8 mm knotless Arthrex fiber tack anchors with #2 suture to repair the posterior labrum tear from 10, 9, 8 and a 7 o'clock position. Placed according to standard fashion, first nitinol wire from posterior to anterior, shuttling the repair stitch, then passing repair stitch through the loop in the passing stitch and tensioning this down. Cutting sutures short. This was solidly fixated. I then also used another 2.0 mm push lock with labral tape in the same configuration but a simple suture to repair of the superior labral tear just anterior to the biceps root. One suture attempt cut through but re-did this and good purchase in adjacent tissue. These were all stable and solid afterwards. Negative drive-through sign at that point. Arthroscopy pictures taken and saved onto the system throughout the case. Case terminated. Shoulder thoroughly irrigated. Skin cleaned with wet and dry dressing followed by removal of the cannulas closure of the portals with 3-0 Monocryl suture. Skin again cleaned with wet and dry dressing followed by application of Adaptic 4 x 4 gauze ABD dressing cloth tape and abduction pillow sling for the upper extremity. Patient woken up from the general anesthetic transferred off the operating table taken to postanesthetic care unit in stable condition. All sponge needle instrument counts were correct. cpt [id number] and [id number] Complications none Admit VTE Documentation VTE Present on Admission: No VTE Mechan Device Prophylaxis: None Reason prophylaxis not ordered:: Treatment Not Indicated Procedures Musculoskeletal [id number]: Other Procedure See Report
--- NOTE | 2023-08-25 12:01 | DCINST_ITS ---
Discharge Instructions Diet Discharge Diet: No restrictions Activity Discharge Activity: May Not Drive Ice area for (Minutes): 10 Additional Activity Instructions:: pendulums four times a day, ok for hand wrist elbow rom Dressing / Incision Call your doctor if your incision/area has: Continuous Slow Oozing, Sudden Increased Bleeding, Increased Pain/ Swelling, Increased Redness, Foul Smelling Discharge and Swelling at the incision site Remove Dressing in: leave in place till F/U Follow Up Care Please Follow Up With: Brando Lawson MD When: 2 days Test Results: Test results from this visit will be discussed in further detail at your follow- up appointment, if applicable. Discharge Plan Admission Attending Provider: Brando Lawson Primary Care Provider: Care Physician,No Primary Instructions Patient Instructions: After Shoulder Arthroscopy Discharge Orders/Prescriptions Prescriptions: New oxycodone-acetaminophen [Percocet] 5-325 mg tablet 1 tab PO Q4H MDD 6 PRN (Reason: pain) 5 Days Qty: 30 0RF No Action fludrocortisone 0.1 mg tablet 0.2 mg PO DAILY clindamycin HCl [Cleocin HCl] 300 mg capsule 300 mg PO Q6H Qty: 40 0RF hydrocodone-acetaminophen [hydrocodone-acetaminophen] 5-325 mg tablet 1 tab PO Q4H PRN PRN (Reason: Pain) 2 Days Qty: 10 0RF verapamil 120 mg tablet extended release 120 mg PO DAILY Patient Comments: TAKE 1 TABLET BY MOUTHCONCE DAILY pantoprazole 40 mg tablet,delayed release (DR/EC) 40 mg PO BID Qty: 180 3RF Zenpep 3,000-10,000 -14,000-unit capsule,delayed release(DR/EC) 3 cap PO DAILY Qty: 320 11RF Rx Instructions: take three with meals and one to two with snacks. ondansetron HCl 8 mg tablet 8 mg PO Q12H PRN (Reason: nausea and vomiting) Qty: 30 1RF Referrals / Follow Up: Brando Lawson MD [Med Staff - Active Staff] - Care Physician,No Primary [Primary Care Provider] - Disposition Disposition (needs filled in before D/C Order can be placed): Home, Self Care
[2023-08-25] MEDS: Oxycodone/Apap 5/325 Tablet PO (13:14)
== END 2023-08-25 13:47 | disposition home or self-care (01) ==
LOC: SDC 06:54 → AC 06:56
PROVIDERS: Referring Provider Orthopaedic Surgery Sports Medicine; Visit Provider Orthopaedic Surgery Sports Medicine
PROC: (CPT 29805; principal; 2023-08-25 08:30)
DX: S42.002A Fracture of unspecified part of left clavicle, initial encounter for closed fracture (principal); F17.210 Nicotine dependence, cigarettes, uncomplicated; Z79.2 Long term (current) use of antibiotics; M25.312 Other instability, left shoulder; R11.0 Nausea; F12.10 Cannabis abuse, uncomplicated; K21.9 Gastro-esophageal reflux disease without esophagitis
CPT/HCPCS: 29807; 29806; 01630; 64450; C1713; J7120; J2405

== ENCOUNTER 2023-09-23 18:06 | Emergency (ER) | payer MEDICAID, SELFPAY ==
[2023-09-23 18:06] VITALS: BP 149/93; PULSE 93; RESP 18; TEMP 36.8; O2SAT 100; BMI 19.1
--- NOTE | 2023-09-23 20:48 | EDS_ITS ---
HPI History of Present Illness Chief Complaint: Dental Informant: patient Narrative Narrative: Patient comes in with dental pain. Patient had all his teeth pulled about 6 days ago. He states about 3 days ago he started having pain in the right upper jaw. He thinks he sees bone in the area. He called his dentist who cannot get him in until about the 16th. No fevers. No chest pain. No abdominal pain nausea vomiting. Nothing makes better or worse. Has been trying to take Motrin. PFSH PFS Medical History Alcohol use Arthritis Asthma Asthma Cardiology follow-up encounter Chronic nausea Closed left clavicular fracture Constipation Gastric reflux History of echocardiogram History of stress test Injury of back Instability of left shoulder joint Loss of consciousness Marijuana abuse Marijuana use Nausea & vomiting PTSD (post-traumatic stress disorder) Restless legs Seizures Shortness of breath on exertion Smoker Symptomatic bradycardia Tobacco abuse Weight loss Home Medications fludrocortisone 0.1 mg tablet 0.2 mg PO DAILY 11/19/22 [History Last Taken 08/25/23 06:00] pantoprazole 40 mg tablet,delayed release 40 mg PO BID #180 tabs 01/07/23 [Rx Last Taken 08/25/23 06:00] [id number] 3,000-10,000-14,000 unit capsule,delayed rel (Zenpep) 3 cap PO DAILY #320 caps 01/22/23 [Rx Last Taken Unknown] ondansetron HCl 8 mg tablet 8 mg PO Q12H PRN nausea and vomiting #30 tabs 02/24/23 [Rx Last Taken Unknown] clindamycin HCl 300 mg capsule (Cleocin HCl) 300 mg PO Q6H #40 CAPSULES 06/08/23 [Rx Last Taken Unknown] verapamil 120 mg tablet,extended release 120 mg PO DAILY 08/11/23 [History Last Taken 08/25/23 06:00] hydrocortisone 1 % topical cream (Cortisone (hydrocortisone)) 1 applic topical TID PRN itching #28.35 grams 09/07/23 [Rx Last Taken Unknown] clindamycin HCl 300 mg capsule (Cleocin HCl) 300 mg PO Q6H #40 CAPSULES 09/23/23 [Rx Last Taken Unknown] oxycodone-acetaminophen 5 mg-325 mg tablet 1 tab PO Q6H PRN PRN Pain 3 days #12 TABLETS 09/23/23 [Rx Last Taken Unknown] Allergy/AdvReac Type Severity Reaction Status Date / Time amoxicillin Allergy Anaphylaxis Verified 09/03/23 13:28 Penicillins [PCN] Allergy Anaphylaxis Verified 09/03/23 13:28 Family History Mother Acute Crohn's disease Brother Family history of GERD Other Arthritis Diabetes Surgical History History of abdominal surgery History of brain surgery Social History Smoking Status: Current every day smoker tobacco type: cigarettes Electronic Cigarette Use: with nicotine alcohol intake: current alcohol intake frequency: holidays/special occasions only Alcohol type: beer substance use type: marijuana caffeine: Yes (1 pop once or twice a week) what type of physical activity do you participate in: none ROS ROS ED Constitutional Constitutional ED: Denies chills or fever(s) Eyes Eyes: Denies blurry vision ENT ENT ED: Reports other Details: See history of present illness. Cardiovascular Cardiovascular: Denies chest pain Respiratory/Chest Respiratory/Chest: Denies cough or dyspnea Gastrointestinal Gastrointestinal: Denies nausea or vomiting Musculoskeletal Musculoskeletal: Denies myalgias or neck pain Integumentary Denies rash Neurologic Neurologic: Denies headache(s) or paresthesias Hematologic/Lymphatic Hematologic/Lymphatic: Denies easy bleeding or easy bruising Allergic/Immunologic Allergic/Immunologic ED: Denies urticaria EXAM Physical Exam Narrative Exam Narrative: General: Patient awake alert nontoxic. HEENT: No external swelling or redness. He does have signs of recent excision of many teeth. Many of these are healing but he has 1 area in the left upper jaw that looks like it is healing slowly but he states its not hurting. He has right upper jaw where there is almost a flap of gum it is red and inflamed. There does appear to be a little bit of visible bone in this area. He states he seen that since surgery. But it does look inflamed. No sign of Ludewig's angina. Lower is really not looking bad. Neck is supple and no swelling or lymphadenopathy Lungs are clear bilaterally with normal saturations at 100% on room air showing no hypoxia. Heart is regular. Abdomen is thin and benign. Const Vital Signs: 11/09/23 18:06 Temperature 98.3 F Temperature Source Temporal Pulse Rate 93 Respiratory Rate 18 Blood Pressure 149/93 H Blood Pressure Mean 111 Pulse Ox 100 Oxygen Delivery Method Room Air MDM MDM MDM Narrative Medical decision making narrative: Patient does have indication of recent surgery and has an area that does in fact look painful. I will write for some pain meds. I will put him back on antibio tics pending seeing dentist because this area is the only area that is inflamed red slightly swollen with a little bit of visible bone. I explained he should call the dentist again and try to get back in earlier than the 16th. We discussed reasons to return. Discharge Plan Triage Chief Complaint: Dental ED Provider: Ty Og Dx/Rx/DC Orders Clinical Impression: Dry socket, History of dental surgery, Dental infection Instructions: ED Dental Abscess, ED Dry Socket Prescriptions: New clindamycin HCl [Cleocin HCl] 300 mg capsule 300 mg PO Q6H Qty: 40 0RF oxycodone-acetaminophen [oxycodone-acetaminophen] 5-325 mg tablet 1 tab PO Q6H PRN PRN (Reason: Pain) 3 Days Qty: 12 0RF No Action fludrocortisone 0.1 mg tablet 0.2 mg PO DAILY hydrocortisone [Cortisone (hydrocortisone)] 1 % cream 1 applic topical TID MDD 3 PRN (Reason: itching) Qty: 28.35 0RF clindamycin HCl [Cleocin HCl] 300 mg capsule 300 mg PO Q6H Qty: 40 0RF verapamil 120 mg tablet extended release 120 mg PO DAILY Patient Comments: TAKE 1 TABLET BY MOUTHCONCE DAILY pantoprazole 40 mg tablet,delayed release (DR/EC) 40 mg PO BID Qty: 180 3RF Zenpep 3,000-10,000 -14,000-unit capsule,delayed release(DR/EC) 3 cap PO DAILY Qty: 320 11RF Rx Instructions: take three with meals and one to two with snacks. ondansetron HCl 8 mg tablet 8 mg PO Q12H PRN (Reason: nausea and vomiting) Qty: 30 1RF Primary Care Provider: Care Physician,No Primary Referrals: Care Physician,No Primary [Primary Care Provider] - Activity Restrictions/Additional Instructions: Follow-up with your dentist as soon as possible. Disposition Disposition: Home, Self Care
[2023-09-23 21:07] VITALS: PULSE 87; RESP 15; O2SAT 97
== END 2023-09-23 21:08 | disposition home or self-care (01) ==
PROVIDERS: Emergency Provider Emergency Medicine; Visit Provider Emergency Medicine
DX: K08.89 Other specified disorders of teeth and supporting structures (principal); F17.210 Nicotine dependence, cigarettes, uncomplicated; K21.9 Gastro-esophageal reflux disease without esophagitis; Z79.899 Other long term (current) drug therapy; M27.3 Alveolitis of jaws; Z98.818 Other dental procedure status
CPT/HCPCS: 99282